=== PATIENT | male | born 1945 | race Caucasian/White ===

== ENCOUNTER → 2017-12-27 | Outpatient (CLI) | payer MEDICARE, BC ==
--- NOTE | 2017-12-31 10:23 | P.ARTDOP ---
Arterial Doppler LOWER EXTREMITY ARTERIAL DOPPLER: DATE OF SERVICE: 12/27/2017 Reason for study: Leg pain, right. Doppler waveforms: Multiphasic bilaterally throughout. Pulse volume recording: Normal configuration. Pressure gradients: None. Ankle-brachial indices: Greater than 1 bilaterally. Toe pressures: 124 on the right, 133 on the left Impression: Normal study.
== END | disposition home or self-care (01) ==
LOC: RADUSWWP 09:57
PROVIDERS: ATTEND Internal Medicine
DX: M79.604 Pain in right leg (principal)
CPT/HCPCS: 93923

== ENCOUNTER → 2019-01-21 | Outpatient (CLI) | payer MEDICARE, BC | END | disposition home or self-care (01) | LOC: LABPAT 12:43 | PROVIDERS: ATTEND Orthopaedic Surgery | DX: Z01.812 Encounter for preprocedural laboratory examination (principal) | CPT/HCPCS: 87070 ==

== ENCOUNTER → 2019-01-30 | Outpatient (CLI) | payer MEDICARE, BC ==
[2019-01-30 16:58] LABS: INR 1.3 (<1.2); Partial Thromboplastin Time 29.8 sec (22.0-30.0); Prothrombin Time 12.9 sec (9.0-12.0)
[2019-01-30 17:01] LABS: Appearance,Urine Clear (Clear); Bilirubin,Urine Negative (Negative); Blood,Urine Small (Negative); Color,Urine Yellow; Glucose,Urine (UA) Negative (Negative); Ketones,Urine Negative (Negative); Leukocyte Esterase,Urine Negative (Negative); Mucus,Urine Rare /hpf; Nitrite,Urine Negative (Negative); PH, Urine 5.5 (5.0-8.0); Protein,Urine 1+ (Negative); RBC,Urine 8 /hpf (0-5); Specific Gravity,Urine 1.012 (1.001-1.035); Urobilinogen,Urine <2.0 mg/dL (<2.0); WBC,Urine <1 /hpf (0-5)
== END | disposition home or self-care (01) ==
LOC: LABPAT 16:30
PROVIDERS: ATTEND Orthopaedic Surgery
DX: Z01.812 Encounter for preprocedural laboratory examination (principal); Z79.01 Long term (current) use of anticoagulants
CPT/HCPCS: 81001; 85610; 85730

== ENCOUNTER 2019-02-10 08:18 | Inpatient (IN) | payer MEDICARE, BC ==
[2019-02-03 15:55] VITALS: BMI 32.5
[~2019-02-10 08:18] MED LIST: ACETAMINOPHEN TAB 500 MG TAB PO ONE; DEXAMETHASONE SOD PHOSPHATE 10 MG/ML 1 ML VIAL IV ONE; LACTATED RINGERS 1,000 ML IV SCH; LIDOCAINE 1% 20 ML VIAL (10MG/ML) FOR IV START INTRADERMA PRN; MELOXICAM 7.5 MG TAB PO ONE; MORPHINE SULFATE 2 MG/ML SYRINGE IV PRN; ONDANSETRON 4 MG/2 ML VIAL IVP ONE; ONDANSETRON 4 MG/2 ML VIAL IVP PRN; ROPIVACAINE 246.25 MG, EPINEPHrine 0.5 MG, KETOROLAC 30 MG, cloNIDine HCL/PF 80 MCG, WA... MISCELLANE ONE; TRANEXAMIC ACID 1,000 MG in SODIUM CHLORIDE 0.9% 100 ML IVPB ONE
[2019-02-10 09:07] LABS: Glucose,Whole Blood 175 mg/dL (75-99)
[2019-02-10] MEDS ORDERED: MIDAZOLAM (PF) 2 MG/2 ML VIAL IVP ONE (09:14)
[2019-02-10] MEDS ORDERED: SODIUM CHLORIDE 0.9% 100 ML BAG ONE (10:40)
[2019-02-10] MEDS ORDERED: fentaNYL (PF) 50 MCG/ML 2 ML AMP ONE (10:40)
[2019-02-10] MEDS ORDERED: MIDAZOLAM 2 MG/2 ML VIAL ONE (10:40)
[2019-02-10] MEDS ORDERED: TRANEXAMIC ACID 1,000 MG/10 ML VIAL ONE (10:40)
[2019-02-10] MEDS ORDERED: PROPOFOL 10 MG/ML 20 ML VIAL IV ONE (10:40)
[2019-02-10] MEDS ORDERED: BISACODYL 10 MG SUPP RECTAL PRN (10:45)
[2019-02-10] MEDS ORDERED: NA PHOS,M-B/NA PHOS,DI-BA 133 ML ENEMA RECTAL PRN (10:45)
[2019-02-10] MEDS ORDERED: HYDROcodone/APAP 5-325MG 1 EACH TAB PO PRN (10:45)
[2019-02-10] MEDS ORDERED: HYDROmorphone 0.5 MG/0.5 ML SYRINGE IVP PRN ×3 (10:45)
[2019-02-10] MEDS ORDERED: ONDANSETRON 4 MG/2 ML VIAL IVP PRN (10:45)
[2019-02-10] MEDS ORDERED: NALOXONE 0.4 MG/ML 1 ML VIAL IV PRN (10:45)
[2019-02-10] MEDS ORDERED: MAGNESIUM HYDROXIDE 2,400 MG/10 ML CUP PO PRN (10:45)
[2019-02-10] MEDS ORDERED: ceFAZolin 3,000 MG in SODIUM CHLORIDE 0.9% IRRIGATIO 3,000 ML IRRIGATION ONE (10:49)
[2019-02-10] MEDS ORDERED: ROPIVACAINE 0.2%-NS ON-Q PUMP 1,090 MG, EMPTY PAIN BALL 1 EACH MISCELLANE PRN (11:05)
--- NOTE | 2019-02-10 12:56 | P.OP ---
Date of Procedure: 02/10/19 Procedure(s) Performed: PREOPERATIVE DIAGNOSIS: Right knee severe osteoarthritis with genu varum POSTOPERATIVE DIAGNOSIS: Right knee severe osteoarthritis with genu varum OPERATION: Right knee cemented total replacement arthroplasty. ANESTHESIA: Spinal ESTIMATED BLOOD LOSS: 50 ml. DIRECTOR OPERATING ROOM: None COMPLICATIONS: None apparent. COMPONENTS IMPLANTED: Journey II BCS total knee system from [employer] INDICATIONS: Mr. Mora is a 73-year-old male with a history of right knee osteoarthritis. The patient's knee is end-stage, and conservative management has failed. He has approximately 20 degree flexion contracture. The operation of knee replacement has been discussed at length in the office, as well as potential risks and complications. These are inclusive of, but not limited to: bleeding, infection, scarring, discomfort, blood vessel and nerve damage, need for further surgery, failure to relieve symptoms, persistence, recurrence, or worsening of problems, loosening, dislocation, wear, blood clot, pulmonary embolism, , gait dysfunction, stiffness, and other risks as discussed in the office. The patient elects to proceed and the consent form has been signed. PROCEDURE: The patient was taken to the operating room and positioned on the operating room table in the supine position. Anesthesia was initiated. Care was taken to make sure that all pressure points were adequately padded. The right operative lower extremity was prepped and draped in the usual aseptic fashion using ChloraPrep. Ioban drape was used for the case and the patient received intravenous antibiotics within one hour of the incision. A pneumotourniquet and leg moore were used for the case. The limb was exsanguinated with an Esmarch bandage and the tourniquet was inflated to 350 mmHg. Time-out was called confirming the patient's identity, side, procedure and administration of antibiotics and tranexamic acid. The incision was then created midline directly over the left knee, carried down through skin and into the subcutaneous tissues and down to fascia. Full thickne ss subcutaneous medial flap was developed. Medial parapatellar arthrotomy was performed and the interior of the knee was inspected. There was end-stage osteoarthritis of the knee with a mild to moderate genu varum type deformity. The fat pad was excised and proximal medial release on the tibia was completed using meticulous dissection and a curved osteotome. The anterior cruciate ligament was taken down. Note was made of significant attrition of the anterior and significant degenerative appearance of the cruciate ligaments. The exposure was excellent. The knee was flexed 90 degrees and the patella was everted. The [employer] pre- made distal cutting block was attached and pinned into position. The planned cut was analyzed visually and found to be satisfactory without the need for any ad justment. The oscillating saw was then used to make the distal femoral cut. An additional 2 mm were taken with a re-cutter block due to the patient's history of flexion contracture. This cut was confirmed to be flat with the flat end of an osteotome. The retractors were placed around the tibia and the tibial surface was addressed. The [employer] pre-made guide was placed onto the exposed tibial surface and pinned into position to glen the rotational alignment. The alignment of the guide was checked for depth of plannned resection, slope, and varus valgus. Guide was confirmed to be in good position and the tibial cut was then created with protection of the posterior neurovascular structures and the collateral ligaments. The tibial cut surface was removed and sized. Femoral sizing was then accomplished using posterior referencing. Care was taken to analyze the posterior condyles for signs of deficiency or severe wear, and adjustments to the guide were made, as appropriate. 3 degree external rotation pins were placed relative to Brantley's line. The cutting jig for the femur was applied to these pins. The planned cuts were further analyzed prior to performing them with the oscillating saw. No femoral notching was produced. Bone fragments were removed and the cut surfaces were finished, as necessary, with a reciprocating saw. Spacer block technique was then used to confirm that the flexion and extension gaps were equal. Soft tissue releases and adjustment of the tibial and/or femoral cuts were made, as necessary, until the gaps were equal. This included release of the posterior cruciate ligament, which was excessively tight in this patient. The femur was then further finished for a posterior cruciate ligament substituting component. Patellar resurfacing was performed using a reamer. The size of the required patellar component was estimated and the patellar surface was then reamed down to a residual thickness which would recreate the solomon thickness with the component. The exact placement of the patellar component was adjusted for position based on preoperative x-rays and intraoperative findings. Prior to placing trial components, anesthetic solution consisting of ropivicaine with epinephrine, ketorolac, and clonidine was injected carefully and methodically in a grid pattern using aspiration technique into the soft tissue around the knee circumferentially, starting with the deeper tissues first and progressing to fascia, and then finally the skin/subcutaneous tissue. Particular care was taken when injecting the posterior capsule. The trial components were inserted. The tibial tray was allowed to self center and the patella was noted to track very well. The position of the tibial component was marked and noted to be nearly exactly aligned with the pre-drilled holes from the [employer] guide. The tibia was then finished for a stemmed tibial component. Cement was mixed on the back table and applied to the final components. Trial components were removed and the cut surfaces of the bone were pulse lavaged thoroughly and dried. Cement was then applied to the tibial surface and pressurized into the surface using finger pressurization technique. The tibial component was then applied and excess cement was removed after it was impacted securely and noted to be flush with the cut surface. In similar fashion, the cement was applied to the cut femoral surface, pressurized in using finger pressurization and the component was impacted into place. Excess cement was removed. The polyethylene spacer was then implanted and locked into position. The patellar component was then applied in similar technique and a patellar clamp was used to hold the patella in place as the cement hardened. Once the cement had fully hardened, the knee was reinspected. Any other cement extrusion was removed and final kinematic testing showed range of motion from 0 to 130 degrees with excellent stability, both medially and laterally and appropriate alignment of the leg. Patellar tracking was excellent. The knee was then thoroughly pulse lavaged with normal saline. The tourniquet was deflated and hemostasis was obtained with electrocautery and IV tranexamic acid, 1 g given at the start of the operation and 1 g at the start of closure. Closure was with #2 Ethibond in the fascia/capsule and supplemented with #2 Quill, 2-0 Vicryl suture was used for the subcutaneous tissues and 3-0 Quill for the skin. Dermabond/Steri-Strips were then applied. A lightly compressive dressing was applied using Webril and an Daniel wrap. [facility] and taken to the recovery room in stable condition. Sponge and needle counts were correct.
[2019-02-10] MEDS ORDERED: LACTATED RINGERS 1,000 ML IV ONE (13:15)
[2019-02-10 13:48] LABS: Glucose,Whole Blood 125 mg/dL (75-99)
--- NOTE | 2019-02-10 13:51 | XR ---
EXAMINATION TYPE: XR knee limited RT DATE OF EXAM: 02/10/2019 COMPARISON: NONE TECHNIQUE: Two views submitted HISTORY: Post op FINDINGS: There is a prosthetic knee in near anatomic alignment. There is soft tissue edema and emphysema. Va scular calcifications noted. Lucency involving the anterior margin patella is nonspecific. Nondisplac ed patellar fracture not excluded. IMPRESSION: 1. Postoperative change. Appears in near-anatomic alignment. See above.
[2019-02-10] MEDS ORDERED: ALBUTEROL NEBULIZED 2.5 MG/3 ML INHALATION PRN (17:12)
[2019-02-10] MEDS: LACTATED RINGERS 1,000 ML IV SCH ×2 (17:19→21:18)
[2019-02-10 17:31] LABS: Glucose,Whole Blood 159 mg/dL (75-99)
[2019-02-10] MEDS: INSULIN ASPART (NovoLOG) 100 UNIT/ML VIAL SQ SCH ×2 (17:38→21:17)
[2019-02-10] MEDS: SYMBICORT 160-4.5 MCG INHALER INHALATION SCH (19:50)
[2019-02-10 20:41] LABS: Glucose,Whole Blood 253 mg/dL (75-99)
[2019-02-10] MEDS: MONTELUKAST 10 MG TAB PO SCH (21:19)
[2019-02-10] MEDS: SENNOSIDES-DOCUSATE SODIUM 1 EACH TAB PO SCH (21:19)
[2019-02-10] MEDS ORDERED: TEMAZEPAM 15 MG CAP PO PRN (22:00)
--- NOTE | 2019-02-10 23:10 | CONS ---
CONSULTATION DATE OF SERVICE: 02/10/2019 REASON FOR CONSULTATION: Advice regarding diabetes and other multiple medical issues requested by Dr. Guadalupe. HISTORY OF PRESENT ILLNESS: This 73-year-old gentleman with a past medical history of asthma, COPD, diabetes, DVT, hearing defect, hypertension, hyperlipidemia, DJD, being followed by Dr. Marquez in the outpatient setting, admitted after right knee cemented total replacement arthroplasty by Dr. Guadalupe. There is no history of fever, rigors or chills. No history of headache, loss of consciousness, chest pain, palpitation, nausea, vomiting and diarrhea. Patient apparently had a tendon replacement and surgery on the left knee several years ago with several postoperative problems according to him. There is no history of fever, rigors, chills at this time. PAST MEDICAL HISTORY: History of asthma, COPD, diabetes, DVT, history of hypertension, hyperlipidemia, DJD, history of orthopedic surgery. History of nicotine dependence. MEDICATIONS: Prior to admission home medications are: 1. Xarelto 20 mg p.o. daily. 2. Aleve 220 mg p.o. b.i.d. p.r.n. 3. Glucotrol 2.5 mg a.c. breakfast. 4. Crestor 10 mg p.o. daily. 5. Multivitamins 1 p.o. daily. 6. Symbicort 160/4.5 two puffs b.i.d. 7. Ventolin HFA 1-2 puffs q.6h p.r.n. 8. Singulair 10 mg q.h.s. 9. Senokot-S 1 tablet p.o. b.i.d. 10.Arden 5/320 mg 1-2 tablets q.4h 6 p.r.n. ALLERGIES: None. FAMILY HISTORY: History of CVA, TIA, myocardial infarction. SOCIAL HISTORY: Previous history of smoking. No history of current smoking or alcohol intake. REVIEW OF SYSTEMS: ENT: No diminished vision. CARDIOVASCULAR: No angina or palpitations. RESPIRATORY: No cough or hemoptysis. GI no nausea or vomiting. no dysuria. NERVOUS SYSTEM: No numbness or weakness. ALLERGY: As mentioned earlier. MUSCULOSKELETAL: As mentioned earlier. HEMATOLOGY: No history of anemia. ENDOCRINE: Diabetes. CONSTITUTIONAL: As mentioned earlier. DERMATOLOGY negative. RHEUMATOLOGY: Negative. PSYCHIATRIC: As mentioned earlier. PHYSICAL EXAMINATION: Alert and oriented x3. Pulse is 66, blood pressure 158/93, respirations 16, temperature 97.7, pulse ox 97% on room air. HEENT is conjunctivae normal. NECK: S1, S2 muffled. RESPIRATIONS: Breath sounds diminished in the bases. No rhonchi. No crackles. ABDOMEN: Soft, nontender. No mass palpable. LEGS: Status post right knee arthroplasty. NERVOUS SYSTEM: Higher functions as mentioned earlier. Moves all 4 limbs. No focal motor or sensory deficits. LYMPHATICS: No lymph nodes palpable in the neck, axilla or groin. LABS: Accu-Cheks 159, 125, 159. Otherwise, the previous chemistries noted. ASSESSMENT: 1. Status post right total knee arthroplasty. 2. History of asthma, chronic obstructive pulmonary disease. 3. Diabetes mellitus type 2. 4. History of deep vein thrombosis. 5. Hypertension. 6. Hyperlipidemia. 7. History of degenerative joint disease. 8. History of pulmonary embolism. 9. History of degenerative joint disease. 10.Remote history of nicotine dependence. 11.FULL CODE. RECOMMENDATIONS AND DISCUSSION: This 73-year-old gentleman presented after surgery at this time I recommend to continue current management and resume the home medication. Monitor blood sugars closely. Otherwise, I would also recommend DVT prophylaxis. The patient is started on Xarelto 20 mg daily. We will follow the patient closely and the patient may be asked to follow up with Dr. Marquez closely after discharge. Thank you Dr. Guadalupe for letting us participate in the care this patient. Please also had medication reconciliation was given thank present complication office was performed. Thank you for this consultation. MMODL / IJN: [id number] /
[2019-02-11] MEDS: HYDROcodone/APAP 5-325MG 1 EACH TAB PO PRN ×4 (01:34→22:18)
[2019-02-11 06:48] LABS: Glucose,Whole Blood 110 mg/dL (75-99)
[2019-02-11 07:09] LABS: Basophils % (A) 0 %; Eosinophils # (A) 0.1 k/uL (0-0.7); Eosinophils % (A) 1 %; HCT 47.8 % (39.0-53.0); HGB 15.5 gm/dL (13.0-17.5); Lymphocytes # (A) 1.2 k/uL (1.0-4.8); Lymphocytes % (A) 9 %; MCHC 32.4 g/dL (31.0-37.0); MCV 95.6 fL (80.0-100.0); Mean Platelet Volume 6.8; Monocytes # (A) 1.1 k/uL (0-1.0); Monocytes % (A) 8 %; Neutrophils % (A) 80 %; Platelet Count 188 k/uL (150-450); RDW 12.9 % (11.5-15.5); WBC 13.7 k/uL (3.8-10.6)
[2019-02-11] MEDS: SYMBICORT 160-4.5 MCG INHALER INHALATION SCH ×2 (07:48→19:32)
--- NOTE | 2019-02-11 08:21 | P.PN ---
Progress Note - Text 02/11/2019 737am 73-year-old male status post total knee replacement by Dr. Guadalupe. Patient has an On-Q pump for postop pain control with the solution running at 7 mL an hour with a VAS of 2. Dressing clean dry and intact. Plan to continue On-Q pump infusion
[2019-02-11] MEDS: INSULIN ASPART (NovoLOG) 100 UNIT/ML VIAL SQ SCH ×4 (08:28→22:11)
[2019-02-11] MEDS: ATORVASTATIN 20 MG TAB PO SCH (08:47)
[2019-02-11] MEDS: MELOXICAM 7.5 MG TAB PO SCH (08:48)
[2019-02-11] MEDS: MULTIVITAMINS, THERA 1 EACH TAB PO SCH (08:49)
[2019-02-11] MEDS: RIVAROXABAN 10 MG TAB PO SCH (08:49)
[2019-02-11] MEDS: LACTATED RINGERS 1,000 ML IV SCH ×2 (10:27→17:24)
--- NOTE | 2019-02-11 11:08 | P.PN ---
Subjective Progress Note Date: 02/11/19 Principal diagnosis: S/P right TKA Patient is seen at bedside this morning. He is postop day #1 from right total knee arthroplasty.. He has pain at the surgical site as expected but denies any new complaints. He denies numbness, tingling or calf pain. Review of systems is negative for fever, chills, chest pain, shortness of breath or other Objective - Vital Signs Vital signs: Vital Signs Temp 98.6 F 02/11/19 07:31 Pulse 75 02/11/19 07:31 Resp 18 02/11/19 04:00 BP 133/70 02/11/19 07:31 Pulse Ox 96 02/11/19 07:31 Intake & Output 02/10/19 02/11/19 02/11/19 18:59 06:59 18:59 Intake Total 1051 Output Total 50 325 Balance 1001 -325 Weight 101.831 kg Intake: IV 1051 Output: Urine 325 Estimated Blood Loss 50 Other: Voiding Method Toilet Urinal - Exam Inspection reveals a benign surgical wound. There is no active bleeding or drainage. Neurovascular status is intact throughout the lower extremity with motor and sensation fully intact. Calf is soft and nontender. 2+ dorsalis pedis pulse and less than 2 second cap refill is present. - Constitutional General appearance: Present: no acute distress - Labs CBC & Chem 7: 02/11/19 06:39 Labs: Abnormal Lab Results - Last 24 Hours (Table) 02/10/19 02/10/19 02/10/19 Range/Units 13:45 17:30 20:38 WBC (3.8-10.6) k/uL Neutrophils # (1.3-7.7) k/uL Monocytes # (0-1.0) k/uL POC Glucose (mg/dL) 125 H 159 H 253 H (75-99) mg/dL 02/11/19 02/11/19 Range/Units 06:39 06:47 WBC 13.7 H (3.8-10.6) k/uL Neutrophils # 11.0 H (1.3-7.7) k/uL Monocytes # 1.1 H (0-1.0) k/uL POC Glucose (mg/dL) 110 H (75-99) mg/dL Assessment and Plan (1) S/P total knee arthroplasty Narrative/Plan: He will continue with routine postop orthopedic protocol including pain management, wound care, PT, DVT prophylaxis and medical management. Expect that he will transfer to home tomorrow Current Visit: Yes Status: Acute Priority: Medium Code(s): Z96.659 - PRESENCE OF UNSPECIFIED ARTIFICIAL KNEE JOINT SNOMED Code(s): 6217120149442 Time with Patient: Less than 30
[2019-02-11 11:49] LABS: Glucose,Whole Blood 70 mg/dL (75-99)
--- NOTE | 2019-02-11 12:58 | P.PN ---
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 Constitutional: Denied any fatigue denied any fever. Cardio vascular: denied any chest pain, palpitations Gastrointestinal denied any nausea vomiting Pulmonary: Denied any shortness of breath cough Neurologic denied any new focal deficits All inpatient medications were reviewed and appropriate changes in these medications as dictated in the interval history and assessment and plan. Objective - Vital Signs Vital signs: Vital Signs Temp 98.6 F 02/11/19 07:31 Pulse 75 02/11/19 07:31 Resp 18 02/11/19 04:00 BP 133/70 02/11/19 07:31 Pulse Ox 96 02/11/19 07:31 Intake & Output 02/10/19 02/11/19 02/11/19 18:59 06:59 18:59 Intake Total 1051 Output Total 50 325 Balance 1001 -325 Weight 101.831 kg Intake: IV 1051 Output: Urine 325 Estimated Blood Loss 50 Other: Voiding Method Toilet Urinal - Exam PHYSICAL EXAMINATION: GENERAL: The patient is alert and oriented x3, not in any acute distress. Well developed, well nourished. HEENT: Pupils are round and equally reacting to light. EOMI. No scleral icterus. No conjunctival pallor. Normocephalic, atraumatic. No pharyngeal erythema. No thyromegaly. CARDIOVASCULAR: S1 and S2 present. No murmurs, rubs, or gallops. PULMONARY: Chest is clear to auscultation, no wheezing or crackles. ABDOMEN: Soft, nontender, nondistended, normoactive bowel sounds. No palpable organomegaly. MUSCULOSKELETAL: No joint swelling or deformity. EXTREMITIES: No cyanosis, clubbing, or pedal edema. Right knee postsurgically packed NEUROLOGICAL: Gross neurological examination did not reveal any focal deficits. SKIN: No rashes. - Labs CBC & Chem 7: 02/11/19 06:39 Labs: Abnormal Lab Results - Last 24 Hours (Table) 02/10/19 02/10/19 02/10/19 Range/Units 13:45 17:30 20:38 WBC (3.8-10.6) k/uL Neutrophils # (1.3-7.7) k/uL Monocytes # (0-1.0) k/uL POC Glucose (mg/dL) 125 H 159 H 253 H (75-99) mg/dL 02/11/19 02/11/19 02/11/19 Range/Units 06:39 06:47 11:48 WBC 13.7 H (3.8-10.6) k/uL Neutrophils # 11.0 H (1.3-7.7) k/uL Monocytes # 1.1 H (0-1.0) k/uL POC Glucose (mg/dL) 110 H 70 L (75-99) mg/dL Assessment and Plan Plan: -Status post right knee arthroplasty and patient is on anticoagulation does have history of DVT in the past - hyperlipidemia -Type 2 diabetes mellitus -COPD without any acute exacerbation Plan is to continue present medication continue to follow on as-needed basis. Patient will need lifelong anticoagulation
[2019-02-11 16:58] LABS: Glucose,Whole Blood 79 mg/dL (75-99)
[2019-02-11 20:55] LABS: Glucose,Whole Blood 108 mg/dL (75-99)
[2019-02-11] MEDS: SENNOSIDES-DOCUSATE SODIUM 1 EACH TAB PO SCH (22:15)
[2019-02-11] MEDS: MONTELUKAST 10 MG TAB PO SCH (22:15)
[2019-02-12] MEDS: LACTATED RINGERS 1,000 ML IV SCH ×2 (03:53→17:48)
[2019-02-12] MEDS: HYDROcodone/APAP 5-325MG 1 EACH TAB PO PRN ×2 (06:12→15:34)
[2019-02-12 07:02] LABS: Glucose,Whole Blood 137 mg/dL (75-99)
[2019-02-12] MEDS: SYMBICORT 160-4.5 MCG INHALER INHALATION SCH (07:14)
[2019-02-12 07:35] VITALS: RESP 16
--- NOTE | 2019-02-12 07:45 | P.DS ---
Providers Date of admission: 02/12/19 01:46 Expected date of discharge: 02/12/19 Attending physician: Kalpesh Guadalupe Consults: 02/10/19 10:45 Consult Physician Routine Consulting Provider: Brandy Eng Consult Reason/Comments: Medical management Do you want consulting provider notified?: Yes Primary care physician: Yisel Marquez - Discharge Diagnosis(es) (1) Osteoarthritis of right knee Current Visit: Yes Status: Acute (2) S/P total knee arthroplasty Current Visit: Yes Status: Acute Priority: Medium (3) Diabetes Current Visit: No Status: Acute (4) Exertional dyspnea Current Visit: No Status: Acute Hospital Course: This is a 73-year-old male who was last seen with complaint of continued right knee pain. The patient has a known history of degenerative arthritis of the right knee and presents to discuss surgical options. After discussion and consideration the patient elects to proceed with total right knee arthroplasty. The patient is seen preoperatively by Dr. Marquez and cleared for surgery. The patient is admitted to [facility] for total right knee arthroplasty. The procedures performed without complication or sequelae. Patient is doing well postoperatively. Vital signs are stable at discharge. Labs are stable at discharge. the patient is ambulating well with walker with minimal assistance. The patient is discharged to home on postop day #2 pending medical clearance. Please see orders and refer to the [facility] rec for accurate list of medications. Plan - Discharge Summary Discharge Rx Participant: Yes New Discharge Prescriptions: New HYDROcodone/APAP 5-325MG [Afton 5-325] 1 - 2 each PO Q4-6H PRN #50 tab PRN Reason: Pain Sennosides-Docusate Sodium [Senokot-S] 1 tab PO BID #60 tablet Continue glipiZIDE [Glucotrol] 2.5 mg PO AC-BRKFST Rosuvastatin [Crestor] 10 mg PO DAILY Rivaroxaban [Xarelto] 20 mg PO DAILY Multivitamins, Thera [Multivitamin (formulary)] 1 tab PO DAILY Naproxen Sodium [Aleve] 220 mg PO BID PRN PRN Reason: Pain Budesonide-Formot 160-4.5 Mcg [Symbicort 160-4.5 Mcg Inhaler] 2 puff INHALATION RT-BID Albuterol Inhaler [Ventolin Hfa Inhaler] 1 - 2 puff INHALATION RT-Q6H PRN PRN Reason: Shortness Of Breath Montelukast Sodium [Singulair] 10 mg PO HS Discharge Medication List Rosuvastatin [Crestor] 10 mg PO DAILY 06/10/14 [History] glipiZIDE [Glucotrol] 2.5 mg PO AC-BRKFST 06/10/14 [History] Multivitamins, Thera [Multivitamin (formulary)] 1 tab PO DAILY 10/27/15 [History] Rivaroxaban [Xarelto] 20 mg PO DAILY 10/27/15 [History] Albuterol Inhaler [Ventolin Hfa Inhaler] 1 - 2 puff INHALATION RT-Q6H PRN 02/03/19 [History] Budesonide-Formot 160-4.5 Mcg [Symbicort 160-4.5 Mcg Inhaler] 2 puff INHALATION RT-BID 02/03/19 [History] Montelukast Sodium [Singulair] 10 mg PO HS 02/03/19 [History] Naproxen Sodium [Aleve] 220 mg PO BID PRN 02/03/19 [History] HYDROcodone/APAP 5-325MG [Afton 5-325] 1 - 2 each PO Q4-6H PRN #50 tab 02/10/19 [Rx] Sennosides-Docusate Sodium [Senokot-S] 1 tab PO BID #60 tablet 02/10/19 [Rx] Follow up Appointment(s)/Referral(s): Tierra Boateng, PAC [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 May shower if no drainage 48h post op. Medical to manage anticoagulation at discharge.
[2019-02-12] MEDS: MELOXICAM 7.5 MG TAB PO SCH (08:22)
[2019-02-12] MEDS: ATORVASTATIN 20 MG TAB PO SCH (08:22)
[2019-02-12] MEDS: INSULIN ASPART (NovoLOG) 100 UNIT/ML VIAL SQ SCH ×2 (08:22→13:13)
[2019-02-12] MEDS: RIVAROXABAN 10 MG TAB PO SCH (08:23)
[2019-02-12] MEDS: MULTIVITAMINS, THERA 1 EACH TAB PO SCH (08:23)
[2019-02-12 11:17] LABS: Glucose,Whole Blood 82 mg/dL (75-99)
--- NOTE | 2019-02-12 12:22 | P.PN ---
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 03/15/2019 No overnight events patient is clinically doing well can be discharged from medical perspective Constitutional: Denied any fatigue denied any fever. Cardio vascular: denied any chest pain, palpitations Gastrointestinal denied any nausea vomiting Pulmonary: Denied any shortness of breath cough Neurologic denied any new focal deficits All inpatient medications were reviewed and appropriate changes in these medications as dictated in the interval history and assessment and plan. Objective - Vital Signs Vital signs: Vital Signs Temp 99.7 F H 02/12/19 07:00 Pulse 94 02/12/19 07:00 Resp 16 02/12/19 07:00 BP 117/67 02/12/19 07:00 Pulse Ox 90 L 02/12/19 07:00 Intake & Output 02/11/19 02/12/19 02/12/19 18:59 06:59 18:59 Intake Total 1000 Output Total 325 Balance 675 Intake: Oral 1000 Output: Urine 325 Other: Voiding Method Urinal Urinal # Voids 3 2 - Exam PHYSICAL EXAMINATION: GENERAL: The patient is alert and oriented x3, not in any acute distress. Well developed, well nourished. HEENT: Pupils are round and equally reacting to light. EOMI. No scleral icterus. No conjunctival pallor. Normocephalic, atraumatic. No pharyngeal erythema. No thyromegaly. CARDIOVASCULAR: S1 and S2 present. No murmurs, rubs, or gallops. PULMONARY: Chest is clear to auscultation, no wheezing or crackles. ABDOMEN: Soft, nontender, nondistended, normoactive bowel sounds. No palpable organomegaly. MUSCULOSKELETAL: No joint swelling or deformity. EXTREMITIES: No cyanosis, clubbing, or pedal edema. Right knee postsurgically packed NEUROLOGICAL: Gross neurological examination did not reveal any focal deficits. SKIN: No rashes. - Labs CBC & Chem 7: 02/11/19 06:39 Labs: Abnormal Lab Results - Last 24 Hours (Table) 02/11/19 02/12/19 Range/Units 20:52 07:00 POC Glucose (mg/dL) 108 H 137 H (75-99) mg/dL Assessment and Plan Plan: -Status post right knee arthroplasty and patient is on anticoagulation does have history of DVT in the past - hyperlipidemia -Type 2 diabetes mellitus -COPD without any acute exacerbation Plan is to continue present medication continue to follow on as-needed basis. Patient will need lifelong anticoagulation
[2019-02-12 14:04] LABS: Hemoglobin A1C 6.2 % (4.0-6.0)
[2019-02-12 14:21] VITALS: BP 145/76; PULSE 85; TEMP 98.6
== END 2019-02-12 16:00 | disposition home health service (06) | DRG 470 ==
LOC: OR 08:18 → 4SSUR 14:43 → OR 02-12 01:45 → 4SSUR 02-12 01:46 → OBSVTOIN 02-12 08:25
PROVIDERS: ADMIT Orthopaedic Surgery; ATTEND Orthopaedic Surgery
PROC: 0SRC0J9 Replacement of Right Knee Joint with Synthetic Substitute, Cemented, Open Approach (ICD-10-PCS; principal; 2019-02-10 09:45)
DX: M17.11 Unilateral primary osteoarthritis, right knee (principal); E11.9 Type 2 diabetes mellitus without complications; J44.9 Chronic obstructive pulmonary disease, unspecified; I10 Essential (primary) hypertension; H91.90 Unspecified hearing loss, unspecified ear; M21.169 Varus deformity, not elsewhere classified, unspecified knee; E78.5 Hyperlipidemia, unspecified; E66.9 Obesity, unspecified; Z96.651 Presence of right artificial knee joint; Z87.891 Personal history of nicotine dependence; Z86.718 Personal history of other venous thrombosis and embolism; Z86.711 Personal history of pulmonary embolism; Z82.49 Family history of ischemic heart disease and other diseases of the circulatory system; Z68.33 Body mass index [BMI] 33.0-33.9, adult
CPT/HCPCS: 83036; 85025; 85610; 85730; 88300; 94640

== ENCOUNTER 2019-02-17 20:03 | Emergency (ER) | payer MEDICARE, BC ==
--- NOTE | 2019-02-17 20:44 | ED ---
Lower Extremity Injury HPI - General Chief Complaint: Extremity Injury, Lower Stated Complaint: Post Op Knee Swelling Time Seen by Provider: 02/17/19 20:33 Source: patient, RN notes reviewed, old records reviewed Mode of arrival: ambulatory Limitations: no limitations - History of Present Illness Initial Comments: This is a 73-year-old male the ER for evaluation. Patient resents today for evaluation regarding significant right lower extremity swelling secondary to postop changes. Patient just had right knee replacement, has known chronic DVT of right lower extremity. Patient on Xarelto. Patient denying chest pain or shortness of breath. Patient isn't complaining of increased swelling and erythema of the right lower extremity, no current fevers. Patient was sent ER today for visiting health for evaluation of possible infection versus recurrent DVT worsening DVT MD Complaint: other (Right knee right lower extremity swelling and pain) Injury: Leg: Right, Knee: Right Type of Injury: other (Postsurgical) Place: home Severity: moderate Severity scale (1-10): 6 Improves With: nothing Worsens With: nothing Context: other (Postsurgical) Associated Symptoms: able to partially bear weight, ambulatory - Related Data Home Medications Medication Instructions Recorded Confirmed Rosuvastatin [Crestor] 10 mg PO DAILY 06/10/14 02/17/19 glipiZIDE [Glucotrol] 2.5 mg PO AC-BRKFST 06/10/14 02/17/19 Multivitamins, Thera [Multivitamin 1 tab PO DAILY 10/27/15 02/17/19 (formulary)] Rivaroxaban [Xarelto] 20 mg PO DAILY 10/27/15 02/17/19 Albuterol Inhaler [Ventolin Hfa 1 - 2 puff INHALATION RT-Q6H PRN 02/03/19 02/17/19 Inhaler] Budesonide-Formot 160-4.5 Mcg 2 puff INHALATION RT-BID 02/03/19 02/17/19 [Symbicort 160-4.5 Mcg Inhaler] Montelukast Sodium [Singulair] 10 mg PO HS 02/03/19 02/17/19 Naproxen Sodium [Aleve] 220 mg PO BID PRN 02/03/19 02/17/19 Allergies Allergy/AdvReac Type Severity Reaction Status Date / Time No Known Allergies Allergy Verified 02/17/19 22:03 Review of Systems ROS Statement: Those systems with pertinent positive or pertinent negative responses have been documented in the HPI. ROS Other: All systems not noted in ROS Statement are negative. Past Medical History Past Medical History: Asthma, COPD, Diabetes Mellitus, Deep Vein Thrombosis (DVT), Hearing Disorder / Deafness, Hyperlipidemia, Hypertension, Osteoarthritis (OA), Pulmonary Embolus (PE) Additional Past Medical History / Comment(s): HX OF DVT X3 RIGHT LEG, AND PE (2015); ARTHRITIS BACK & NECK. BRUISES EASILY. History of Any Multi-Drug Resistant Organisms: None Reported Past Surgical History: Joint Replacement, Orthopedic Surgery Additional Past Surgical History / Comment(s): "GROWTHS REMOVED FROM HIS LUNGS, STATES THEY HAD TO CUT STERNUM (1988); LEFT KNEE LIGAMENT SURGERY; SAILAJA CAROTID ENDARTRECTOMY. right knee replaced, Past Anesthesia/Blood Transfusion Reactions: No Reported Reaction Additional Past Anesthesia/Blood Transfusion Reaction / Comment(s): HX OF BLOOD TRANSFUSION Past Psychological History: No Psychological Hx Reported Smoking Status: Former smoker Past Alcohol Use History: None Reported Past Drug Use History: None Reported - Past Family History Father Family Medical History: CVA/TIA, Myocardial Infarction ([place]) Additional Family Medical History / Comment(s): AT AGE 68- [place] Mother Family Medical History: No Reported History Additional Family Medical History / Comment(s): AT AGE 85 OLD AGE General Exam - General Exam Comments Initial Comments: Right lower extremity edema, swelling, erythema. Pulses 2+ dorsalis pedis posterior tibialis. Positive range of motion Limitations: no limitations General appearance: alert, in no apparent distress Head exam: Present: atraumatic, normocephalic, normal inspection Eye exam: Present: normal appearance, PERRL, EOMI. Absent: scleral icterus, conjunctival injection, periorbital swelling ENT exam: Present: normal exam, mucous membranes moist Neck exam: Present: normal inspection. Absent: tenderness, meningismus, lymphadenopathy Respiratory exam: Present: normal lung sounds bilaterally. Absent: respiratory distress, wheezes, rales, rhonchi, stridor Cardiovascular Exam: Present: regular rate, normal rhythm, normal heart sounds. Absent: systolic murmur, diastolic murmur, rubs, gallop, clicks GI/Abdominal exam: Present: soft, normal bowel sounds. Absent: distended, tenderness, guarding, rebound, rigid Extremities exam: Present: normal inspection, full ROM, normal capillary refill. Absent: tenderness, pedal edema, joint swelling, calf tenderness Back exam: Present: normal inspection Neurological exam: Present: alert, oriented X3, CN II-XII intact Psychiatric exam: Present: normal affect, normal mood Skin exam: Present: warm, dry, intact, normal color. Absent: rash Course Vital Signs 02/17/19 02/17/19 02/18/19 20:21 22:41 00:23 Temperature 99.0 F 98.7 F Pulse Rate 108 H 74 85 Respiratory 17 16 18 Rate Blood Pressure 140/80 141/87 O2 Sat by Pulse 97 94 L 96 Oximetry - Reevaluation(s) Reevaluation #1: Medical records reviewed pain is controlled Spoke with orthopedics Dr. Ruelas, recommends reevaluation tomorrow morning in the office Medical Decision Making - Medical Decision Making 73 male the ER for evaluation of right lower extremity pain and swelling. Patient does have chronic DVT right lower extremity on Xarelto, x-rays nonsignificant. No fevers. Patient does have range of motion of right lower extremity right knee. Spoke with orthopedics will see patient in office tomorrow recommending treatment at this time - Lab Data Result diagrams: 02/17/19 21:03 02/17/19 21:03 Lab Results 02/17/19 02/17/19 Range/Units 21:03 21:03 WBC 9.8 (3.8-10.6) k/uL RBC 4.52 (4.30-5.90) m/uL Hgb 14.2 (13.0-17.5) gm/dL Hct 43.1 (39.0-53.0) % MCV 95.5 (80.0-100.0) fL MCH 31.5 (25.0-35.0) pg MCHC 33.0 (31.0-37.0) g/dL RDW 14.8 (11.5-15.5) % Plt Count 325 (150-450) k/uL Neutrophils % 74 % Lymphocytes % 11 % Monocytes % 7 % Eosinophils % 5 % Basophils % 1 % Neutrophils # 7.3 (1.3-7.7) k/uL Lymphocytes # 1.1 (1.0-4.8) k/uL Monocytes # 0.7 (0-1.0) k/uL Eosinophils # 0.5 (0-0.7) k/uL Basophils # 0.1 (0-0.2) k/uL ESR 22 H (0-15) mm/hr Sodium 140 (137-145) mmol/L Potassium 4.5 (3.5-5.1) mmol/L Chloride 105 (98-107) mmol/L Carbon Dioxide 27 (22-30) mmol/L Anion Gap 8 mmol/L BUN 25 H (9-20) mg/dL Creatinine 1.26 H (0.66-1.25) mg/dL Est GFR (CKD-EPI)AfAm 64 (>60 ml/min/1.73 sqM) Est GFR (CKD-EPI)NonAf 55 (>60 ml/min/1.73 sqM) Glucose 204 H (74-99) mg/dL Calcium 8.7 (8.4-10.2) mg/dL Total Bilirubin 1.2 (0.2-1.3) mg/dL AST 57 (17-59) U/L ALT 48 (21-72) U/L Alkaline Phosphatase 61 (38-126) U/L C-Reactive Protein 34.8 H (<10.0) mg/L Total Protein 6.6 (6.3-8.2) g/dL Albumin 3.5 (3.5-5.0) g/dL - Radiology Data Radiology results: report reviewed (Ultrasound right lower Shorty positive for DVT, x-ray right lower extremity and postsurgical changes), image reviewed Disposition Clinical Impression: Swelling of right lower extremity, S/P total knee arthroplasty Disposition: HOME SELF-CARE Condition: Good Instructions (If sedation given, give patient instructions): Leg Edema (ED) Is patient prescribed a controlled substance at d/c from ED?: No Referrals: Yisel Marquez MD [Primary Care Provider] - 1-2 days
[2019-02-17] MEDS ORDERED: SODIUM CHLORIDE 0.9% 1,000 ML IV STA (20:48)
[2019-02-17] MEDS ORDERED: MORPHINE SULFATE 4 MG/ML SYRINGE IVP STA (21:10)
[2019-02-17] MEDS ORDERED: MORPHINE SULFATE 4 MG/ML SYRINGE IVP PRN (21:10)
[2019-02-17 21:15] LABS: Basophils # (A) 0.1 k/uL (0-0.2); Basophils % (A) 1 %; Eosinophils # (A) 0.5 k/uL (0-0.7); Eosinophils % (A) 5 %; HCT 43.1 % (39.0-53.0); HGB 14.2 gm/dL (13.0-17.5); Lymphocytes # (A) 1.1 k/uL (1.0-4.8); Lymphocytes % (A) 11 %; MCH 31.5 pg (25.0-35.0); MCV 95.5 fL (80.0-100.0); Mean Platelet Volume 7.2; Monocytes # (A) 0.7 k/uL (0-1.0); Monocytes % (A) 7 %; Neutrophils # (A) 7.3 k/uL (1.3-7.7); Neutrophils % (A) 74 %; Platelet Count 325 k/uL (150-450); RBC 4.52 m/uL (4.30-5.90); RDW 14.8 % (11.5-15.5); WBC 9.8 k/uL (3.8-10.6)
[2019-02-17 21:30] LABS: Albumin 3.5 g/dL (3.5-5.0); C Reactive Protein 34.8 mg/L (<10.0); Calcium 8.7 mg/dL (8.4-10.2); Potassium 4.5 mmol/L (3.5-5.1); Total Bilirubin 1.2 mg/dL (0.2-1.3); Total Protein 6.6 g/dL (6.3-8.2)
--- NOTE | 2019-02-17 21:56 | US ---
EXAMINATION TYPE: US venous doppler duplex LE RT DATE OF EXAM: 02/17/2019 9:50 PM COMPARISON: US 2015 CLINICAL HISTORY: Pain. Rt leg pain and redness x 3 days. Knee surgery on 02/10/2019. Hx DVT, PE. SIDE PERFORMED: Right TECHNIQUE: The lower extremity deep venous system is examined utilizing real time linear array sonog sylvia with graded compression, doppler sonography and color-flow sonography. VESSELS IMAGED: External Iliac Vein (EIV) Common Femoral Vein Deep Femoral Vein Greater Saphenous Vein * Femoral Vein Popliteal Vein Proximal Calf Veins (* superficial vessels) Right Leg: There appears to be non-occlusive thrombus in the mid/distal popliteal vein. This area co mpresses incompletely and shows color defect. Pt cannot tolerate compression of distal femoral vein. Color imaging of distal femoral vein performed. IMPRESSION: There is evidence of chronic deep venous thrombosis in the popliteal vein. No evidence o f acute deep venous thrombosis.
[2019-02-17 21:58] LABS: Erythrocyte Sedimentation Rate 22 mm/hr (0-15)
--- NOTE | 2019-02-17 23:17 | XR ---
EXAM: XR Right Knee, 3 views CLINICAL HISTORY: ITS.REASON XR Reason: pain TECHNIQUE: Three views of the right knee. COMPARISON: No relevant prior studies available. FINDINGS: Bones/joints: Status post arthroplasty without signs of hardware complication. No acute fracture. No dislocation. Soft tissues: Unremarkable. IMPRESSION: Status post arthroplasty without signs of hardware complication.
[2019-02-18 00:44] VITALS: BP 141/87; PULSE 85; RESP 18; TEMP 98.7
== END 2019-02-18 00:23 | disposition home or self-care (01) ==
LOC: EC 20:03
DX: M79.89 Other specified soft tissue disorders (principal); Z96.651 Presence of right artificial knee joint; J44.9 Chronic obstructive pulmonary disease, unspecified; E11.9 Type 2 diabetes mellitus without complications; E78.5 Hyperlipidemia, unspecified; I10 Essential (primary) hypertension; Z79.01 Long term (current) use of anticoagulants; Z79.84 Long term (current) use of oral hypoglycemic drugs; Z79.51 Long term (current) use of inhaled steroids; Z79.899 Other long term (current) drug therapy; Z87.891 Personal history of nicotine dependence; Z86.711 Personal history of pulmonary embolism; Z86.718 Personal history of other venous thrombosis and embolism
CPT/HCPCS: 36415; 80053; 85652; 85025; 86140; 87040; 73562; 93971; 99284; 96374; 96361 ×2; J2270

== ENCOUNTER → 2020-01-22 | Outpatient (CLI) | payer MEDICARE, BC ==
--- NOTE | 2020-01-22 15:43 | US ---
EXAMINATION TYPE: US venous doppler duplex LE RT DATE OF EXAM: 01/22/2020 3:08 PM COMPARISON: 02/17/2019 CLINICAL HISTORY: I80.9 Phlabitis anf thrombophlabitis. Pain hx of blood clot on blood thinners SIDE PERFORMED: Right TECHNIQUE: The lower extremity deep venous system is examined utilizing real time linear array sonog sylvia with graded compression, doppler sonography and color-flow sonography. VESSELS IMAGED: External Iliac Vein (EIV) Common Femoral Vein Deep Femoral Vein Greater Saphenous Vein * Femoral Vein Popliteal Vein Small Saphenous Vein * Proximal Calf Veins (* superficial vessels) Popliteal Vein not complete compression due to chronic DVT good blood flow visualized. IMPRESSION: 1. There is incomplete compression of the right popliteal vein compatible with chronic DVT. There is color flow within the popliteal vein.
== END | disposition home or self-care (01) ==
LOC: RADUSWWP 14:13
PROVIDERS: ATTEND Orthopaedic Surgery
DX: M25.561 Pain in right knee (principal); R93.89 Abnormal findings on diagnostic imaging of other specified body structures; E11.9 Type 2 diabetes mellitus without complications; I10 Essential (primary) hypertension; E78.5 Hyperlipidemia, unspecified; Z96.651 Presence of right artificial knee joint; I80.9 Phlebitis and thrombophlebitis of unspecified site

== ENCOUNTER → 2022-07-27 | Outpatient (CLI) | payer MEDICARE, BC ==
--- NOTE | 2022-07-27 11:05 | XR ---
EXAMINATION TYPE: XR Hip Complete RT DATE OF EXAM: 07/27/2022 CLINICAL HISTORY: Chronic right hip pain x6 weeks with limited range of motion after fall TECHNIQUE: 2 views of the right hip are obtained. COMPARISON: Left femur 06/30/2010 FINDINGS: There are severe degenerative changes of the right hip with sclerosis, subchondral cystic changes, marginal spurring, and near complete loss of the superior joint space. There is no acute fra cture/dislocation evident in the right hip. Degenerative changes of the lower lumbosacral spine are p artially visualized. IMPRESSION: 1. No acute fracture or dislocation of the right hip. Osteopenia does limit sensitivity, so if there is further concern for acute fracture, MRI is suggested. 2. Severe right hip degenerative changes with near complete loss of superior joint space.
== END | disposition home or self-care (01) ==
LOC: RADXRYALE 08:49
PROVIDERS: ATTEND Internal Medicine
DX: M16.11 Unilateral primary osteoarthritis, right hip (principal); G89.29 Other chronic pain
CPT/HCPCS: 73502

== ENCOUNTER 2022-09-28 15:19 | Observation (INO) | payer OTHER, MEDICARE ==
[2022-09-28] MEDS ORDERED: DIPH,PERTUS(ACELL)TETVAC-LF 0.5 ML VIAL IM ONE (15:20)
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
--- NOTE | 2022-09-28 15:49 | XR ---
EXAMINATION TYPE: XR chest 1V portable DATE OF EXAM: 09/28/2022 COMPARISON: 06/10/2014 HISTORY: Pain TECHNIQUE: Single frontal view of the chest is obtained. FINDINGS: There is no focal air space opacity, pleural effusion, or pneumothorax seen. The cardiac silhouette size is within normal limits. The osseous structures are intact. Postsurgical changes ar e seen. IMPRESSION: No acute process.
--- NOTE | 2022-09-28 15:54 | XR ---
EXAMINATION TYPE: XR tibia fibula LT DATE OF EXAM: 09/28/2022 COMPARISON: 06/08/2016 x-ray of the knee HISTORY: Pain TECHNIQUE: Two views are submitted. FINDINGS: The osseous structures are intact. The joint spaces are preserved. Calcaneal spur noted. There are ossified densities posterior to the calcaneus which are corticated likely chronic. Correlate for soft tissue injury. Subcutaneous soft tissue emphysema noted. Sclerotic density overlying the distal diap hysis of the right femur appears within the subcutaneous soft tissues and stable relative to 6. Hypertrophic arthropathy of the patellofemoral joint. IMPRESSION: 1. No acute osseous abnormality. Soft tissue edema with probable laceration with subcutaneous emphyse ma.
--- NOTE | 2022-09-28 15:55 | XR ---
EXAMINATION TYPE: XR pelvis AP view DATE OF EXAM: 09/28/2022 COMPARISON: X-ray 07/27/2022 HISTORY: Pain The osseous structures are intact and the joint spaces are preserved. No acute fracture is seen. Vi sualized bowel gas pattern is nonspecific. Complete loss of joint space in the right hip. Vascular ca lcifications noted and there are severe arthropathy of the left hip. Hypertrophic and degenerative ch manuel of the spine. IMPRESSION: 1. Bilateral severe hip joint arthropathy with complete loss of joint space on the right similar to t he prior x-ray 07/27/2012.
[2022-09-28 15:58] LABS: Basophils % (A) 0 %; Eosinophils # (A) 0.3 k/uL (0-0.7); Eosinophils % (A) 4 %; HGB 15.8 gm/dL (13.0-17.5); Lymphocytes # (A) 0.9 k/uL (1.0-4.8); Lymphocytes % (A) 10 %; MCH 31.9 pg (25.0-35.0); MCHC 33.7 g/dL (31.0-37.0); MCV 94.8 fL (80.0-100.0); Mean Platelet Volume 7.5; Monocytes # (A) 0.5 k/uL (0-1.0); Monocytes % (A) 5 %; Neutrophils # (A) 7.3 k/uL (1.3-7.7); Neutrophils % (A) 80 %; Platelet Count 177 k/uL (150-450); RBC 4.96 m/uL (4.30-5.90); RDW 12.5 % (11.5-15.5); WBC 9.1 k/uL (3.8-10.6)
[2022-09-28 16:12] LABS: ALT 29 U/L (4-49); AST 34 U/L (17-59); African American GFR (CKD) 62 (>60 ml/min/1.73 sqM); Albumin 3.4 g/dL (3.5-5.0); Alcohol <10 mg/dL; Alkaline Phosphatase 77 U/L (38-126); Anion Gap 4 mmol/L; Blood Urea Nitrogen 28 mg/dL (9-20); Calcium 8.6 mg/dL (8.4-10.2); Carbon Dioxide 29 mmol/L (22-30); Chloride 105 mmol/L (98-107); Glucose 140 mg/dL (74-99); INR 1.1 (<1.2); Non-African American GFR(CKD) 53 (>60 ml/min/1.73 sqM); Potassium 4.3 mmol/L (3.5-5.1); Prothrombin Time 11.4 sec (9.0-12.0); Sodium 138 mmol/L (137-145); Total Bilirubin 0.6 mg/dL (0.2-1.3); Total Protein 6.2 g/dL (6.3-8.2)
[2022-09-28 16:34] LABS: Amphetamine Screen,Urine Not Detected (NotDetected); Barbiturate Screen,Urine Not Detected (NotDetected); Benzodiazepines Screen,Urine Not Detected (NotDetected); Cocaine Screen,Urine Not Detected (NotDetected); Methadone Screen, Urine Not Detected (NotDetected); Opiate Screen,Urine Not Detected (NotDetected); Oxycodone Screen, Urine Not Detected (NotDetected); Phencyclidine Screen,Urine Not Detected (NotDetected); Tricyclic Antidepressant,Urine Not Detected (NotDetected); Urn Cannabinoid Scrn Not Detected (NotDetected)
[2022-09-28] MEDS ORDERED: SODIUM CHLORIDE 0.9% 1,000 ML IV ONE (16:49)
[2022-09-28] MEDS ORDERED: METOCLOPRAMIDE 5 MG/ML 2 ML VIAL ONE (17:00)
[2022-09-28] MEDS ORDERED: ONDANSETRON 4 MG/2 ML VIAL ONE (17:00)
[2022-09-28] MEDS ORDERED: DEXAMETHASONE SOD PHOSPHATE 4 MG/ML 1 ML VIAL IV ONE (17:03)
[2022-09-28] MEDS ORDERED: ONDANSETRON 4 MG/2 ML VIAL IVP ONE ×2 (17:03→17:07)
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
[2022-09-28] MEDS ORDERED: METOCLOPRAMIDE 5 MG/ML 2 ML VIAL IVP ONE (17:07)
[2022-09-28] MEDS ORDERED: DEXAMETHASONE SOD PHOSPHATE 4 MG/ML 1 ML VIAL IVP ONE (17:07)
[2022-09-28] MEDS ORDERED: LACTATED RINGERS 1,000 ML IV ONE (17:08)
[2022-09-28] MEDS ORDERED: CITRIC ACID-SODIUM CITRATE 15 ML CUP PO ONE (17:15)
[2022-09-28] MEDS ORDERED: LIDOCAINE 2% INJ 20 MG/ML (2 ML VIAL) ONE (17:19)
[2022-09-28] MEDS ORDERED: PHENYLEPHRINE-0.9% NACL SYG 1,000 MCG/10 ML SYRINGE ONE (17:19)
[2022-09-28] MEDS ORDERED: SODIUM CHLORIDE 0.9% 100 ML BAG ONE (17:19)
[2022-09-28] MEDS ORDERED: SUCCINYLCHOLINE CHLORIDE 200 MG/10 ML VIAL IV ONE (17:19)
[2022-09-28] MEDS ORDERED: MIDAZOLAM 2 MG/2 ML VIAL ONE (17:19)
[2022-09-28] MEDS ORDERED: ePHEDrine 50 MG/ML 1 ML VIAL ONE (17:19)
[2022-09-28] MEDS ORDERED: fentaNYL (PF) 50 MCG/ML 2 ML AMP ONE (17:19)
[2022-09-28] MEDS ORDERED: PROPOFOL 10 MG/ML 20 ML VIAL IV ONE (17:19)
[2022-09-28] MEDS ORDERED: ceFAZolin 1,000 MG VIAL ONE (17:19)
[2022-09-28] MEDS ORDERED: HYDROcodone/APAP 7.5-325MG 1 EACH TAB PO PRN ×2 (17:23)
[2022-09-28] MEDS ORDERED: SODIUM CHLORIDE 0.9% 100 ML with ceFAZolin 2,000 MG IV ONE ×2 (17:24)
[2022-09-28 19:00] LABS: Glucose,Whole Blood 106 mg/dL (70-110)
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
[2022-09-29] MEDS ORDERED: HYDROmorphone 0.5 MG/0.5 ML SYRINGE IVP PRN (07:00)
[2022-09-29] MEDS ORDERED: METOCLOPRAMIDE 5 MG/ML 2 ML VIAL IVP PRN (07:00)
[2022-09-29 07:44] VITALS: BP 120/60; PULSE 81; RESP 16; TEMP 97
--- NOTE | 2022-09-29 08:55 | P.PN ---
Subjective Progress Note Date: 09/29/22 Principal diagnosis: 1.) Left leg crush injury 2.) Left leg complex laceration Patient seen and examined this morning. Patient is sitting up in chair with a reclined with bilateral lower extremities elevated. Surgical dressing to left lower extremity is clean dry and intact, no shadowing. Patient is able to wiggle toes, denies numbness or tingling to left lower extremity. Patient states he's been able toward with walker to restroom and tolerating activity well. Patient states that his pain is well-controlled on current regimen. Patient states he does have a walker at home. He is looking forward to being discharged. Patient has been afebrile, denies nausea/vomiting, or chest pain. Objective - Vital Signs Vital signs: Vital Signs Temp 97.0 F L 09/29/22 07:43 Pulse 81 09/29/22 07:43 Resp 16 09/29/22 07:43 BP 120/60 09/29/22 07:43 Pulse Ox 95 09/29/22 01:47 FiO2 Intake & Output 09/28/22 09/29/22 09/29/22 18:59 06:59 18:59 Intake Total 900 120 Output Total 30 750 Balance 870 -630 Weight 91.626 kg 91.626 kg Intake: IV 900 Oral 120 Output: Urine 750 Estimated Blood Loss 30 Other: Voiding Method Urinal - Exam Patient is alert and oriented 3 appears well-nourished well-hydrated is in no acute distress. They do not appear septic. Inspection: Surgical dressing to LLE is CDI, no shadowing noted. Lower extremities with 5/5 strength in all major muscle groups Upper extremities show 5/5 strength in all major muscle groups. 2/4DTR all UE and LE b/l No tensioning signs. Cranial nerves II through XII are grossly intact. There is FROM that is painless of the b/l UE and LE in all major joints without pain. They are intact to light touch sensation in L2 to S1 nerve distribution. Patient has palpable dorsalis pedis was posterior tibial pulses. Compartments are soft and compressible. - Labs CBC & Chem 7: 09/28/22 15:38 09/28/22 15:38 Labs: Abnormal Lab Results - Last 24 Hours (Table) 09/28/22 09/28/22 Range/Units 15:38 15:38 Lymphocytes # 0.9 L (1.0-4.8) k/uL BUN 28 H (9-20) mg/dL Creatinine 1.27 H (0.66-1.25) mg/dL Glucose 140 H (74-99) mg/dL Total Protein 6.2 L (6.3-8.2) g/dL Albumin 3.4 L (3.5-5.0) g/dL Assessment and Plan Assessment: s/p Left leg complex laceration closure 30 cm with Left leg wound irrigation and sharp excisional debridement of non viable subcutaneous fat/tissue. 1.) Left leg crush injury 2.) Left leg complex laceration Plan: -Appreciate client consultant and team management. -Activity: Ambulate QID, OOB all meals, up and about, limit lifting bending twisting to less than 5 lbs. Use walker or cane if needed for stability. -Daily PT/OT, increase ambulation strength and balance. -Pain control: Adequate at this time -Meds: reviewed -GI ppx: senna, Miralax -Hygiene: Shower today. Maintain dressing clean and dry. -Encourage IS 10x/hr -Dispo: Anticipate discharge home today, patient declines need for homecare. *I reviewed and discussed this case with my attending Dr. Cortez, whom has reviewed this chart and films and is in agreement with assessment and plan of care as outlined above. I have personally seen and examined the patient, performed the documentation and the assessment and plan as written. Number of minutes spent on the visit: 10m
--- NOTE | 2022-09-29 09:13 | P.DS ---
Providers Date of admission: 09/28/22 16:49 Expected date of discharge: 09/29/22 Attending physician: Vinnie Cortez DO Primary care physician: Yisel Marquez [facility] Course: Hospital Course: The patient was evaluated preoperatively and found to have the diagnosis of left leg crush injury with laceration. They underwent appropriate preoperative care and were willing to undergo the intended procedure. They underwent a successful Left leg complex laceration closure 30 cm 2.) Left leg wound irrigation and sharp excisional debridement of non viable subcutaneous fat/tissue, were recovered appropriately and sent to the floor. While on the floor they worked with physical therapy, occupational therapy and nursing to enhance their recovery experience. Their pain was well controlled through their stay and they were started on appropriate medications, DVT ppx modalities, activity and dietary needs. Daily labs were monitored closely, and transfusions were only used when necessary. Medicine as well as other consulting services have made their input and have helped with our team approach and multidisciplinary care. PT milestones have been met and passed and they have made the recommendation of home for this patient and treating providers agree with this care path. The patient will be discharged home with appropriate medications, instructions and follow-up information and in stable condition. Patient Condition at Discharge: Good Plan - Discharge Summary Discharge Rx Participant: No New Discharge Prescriptions: New Cephalexin [Keflex] 500 mg PO QID 7 Days #28 cap HYDROcodone/APAP 5-325MG [[place] 5-325] 1 tab PO Q6HR PRN #18 tab PRN Reason: Pain No Action Rivaroxaban [Xarelto] 20 mg PO DAILY Budesonide-Formot 160-4.5 Mcg [Symbicort 160-4.5 Mcg Inhaler] 2 puff INHALATION RT-BID Albuterol Sulfate [Albuterol Sulfate Hfa] 2 puff PO RT-Q6H PRN PRN Reason: Shortness Of Breath Rosuvastatin Calcium 5 mg PO DAILY lisinopriL [Zestril] 5 mg PO DAILY Dapagliflozin Propanediol [Farxiga] 5 mg PO DAILY Discharge Medication List Rivaroxaban [Xarelto] 20 mg PO DAILY 10/27/15 [History] Budesonide-Formot 160-4.5 Mcg [Symbicort 160-4.5 Mcg Inhaler] 2 puff INHALATION RT-BID 02/03/19 [History] Albuterol Sulfate [Albuterol Sulfate Hfa] 2 puff PO RT-Q6H PRN 09/28/22 [History] Dapagliflozin Propanediol [Farxiga] 5 mg PO DAILY 09/28/22 [History] Rosuvastatin Calcium 5 mg PO DAILY 09/28/22 [History] lisinopriL [Zestril] 5 mg PO DAILY 09/28/22 [History] Cephalexin [Keflex] 500 mg PO QID 7 Days #28 cap 09/29/22 [Rx] HYDROcodone/APAP 5-325MG [[place] 5-325] 1 tab PO Q6HR PRN #18 tab 09/29/22 [Rx] Follow up Appointment(s)/Referral(s): Vinnie Cortez DO [Doctor of Osteopathic Medicine] - 10/02/22 Yisel Marquez MD [Primary Care Provider] - 1-2 days Activity/Diet/Wound Care/Special Instructions: Orthopedic Discharge Instructions: 1. Maintain current dressing clean dry and intact. Do not remove 2. Weight-bear as tolerated with walker / crutch ambulation until follow-up. 3. Ice and elevate when necessary. Do not exceed 20 minutes per hour with ice pack. 6. Pain meds and anticoagulants per prescription. 7. Follow-up in office on Sunday10/02/22 8. Contact [facility] with any questions. Discharge Disposition: HOME SELF-CARE
== END 2022-09-29 15:18 | disposition home or self-care (01) ==
LOC: EC 15:19 → 4SSUR 16:49 → EC 16:51 → 4SSUR 18:47
PROVIDERS: ADMIT Orthopaedic Surgery Hand Surgery; ATTEND Orthopaedic Surgery Hand Surgery
DX: S87.82XA Crushing injury of left lower leg, initial encounter (principal); S81.812A Laceration without foreign body, left lower leg, initial encounter; J44.9 Chronic obstructive pulmonary disease, unspecified; I10 Essential (primary) hypertension; E11.9 Type 2 diabetes mellitus without complications; M47.9 Spondylosis, unspecified; E78.5 Hyperlipidemia, unspecified; I45.10 Unspecified right bundle-branch block; H91.90 Unspecified hearing loss, unspecified ear; M19.90 Unspecified osteoarthritis, unspecified site; F17.200 Nicotine dependence, unspecified, uncomplicated; Z79.01 Long term (current) use of anticoagulants; Z79.84 Long term (current) use of oral hypoglycemic drugs; Z79.899 Other long term (current) drug therapy; Z79.51 Long term (current) use of inhaled steroids; V48.2XXA Person on outside of car injured in noncollision transport accident in nontraffic accident, initial encounter; Z86.718 Personal history of other venous thrombosis and embolism; Z86.711 Personal history of pulmonary embolism; Z96.651 Presence of right artificial knee joint; Z98.890 Other specified postprocedural states; Z82.3 Family history of stroke; Z82.49 Family history of ischemic heart disease and other diseases of the circulatory system
CPT/HCPCS: 90471; 99285; 36415; 93005; 97162; 86900; 86901; 80053; 84484; 85025; 85610; 85730; 86850; 80306; 80320; 72170; 73590; 71045; 90715; 13121; 13122 ×5; G0378 ×2; J2250; J0330; J1100; J2765; J0690 ×3; J2405; J3010; J2370; J2704; J2001

== ENCOUNTER → 2023-12-25 | Outpatient (CLI) | payer MEDICARE, BC ==
--- NOTE | 2023-12-25 16:13 | US ---
EXAMINATION TYPE: US arterial LE single level DATE OF EXAM: 12/25/2023 2:33 PM CLINICAL INDICATION: Male, 78 years old with history of L97.912 NON PRESSURE CHR ULCER; Discoloration purple/redness right lower leg. Non-pressure chronic ulcer right lower leg History of: Smoker: no Hypertension: no Diabetic: no Hyperlipidemia: no TIA/CVA: no Previous Vascular Surgery: no MD: no Vascular Ulcers: yes Claudication: no Gangrene: no Doppler Waveforms: Right: Multiphasic Left: Multiphasic Right Brachial Pressure: 171 Left Brachial Pressure: 174 Ankle-Brachial Indices: Right: 1.04 Left: 1.15 (Vessel hardening > 1.4; Normal 0.9 - 1.4, Moderate 0.7 - 0.9, Severe 0.5-0.7) Toe Brachial Indices: Right: 0.71 Left: 0.72 IMPRESSION: Ankle-brachial indices within normal limits bilaterally.
--- NOTE | 2023-12-25 16:43 | US ---
EXAMINATION TYPE: US venous doppler duplex LE RT DATE OF EXAM: 12/25/2023 2:17 PM COMPARISON: 01/22/2020 CLINICAL INDICATION: Male, 78 years old with history of L97.912 NON-PRESSURE CHRONIC ULCER OF UNSPEC PART; History of DVT right leg, patient currently on blood thinner. non-pressure chronic ulcer right lower leg SIDE PERFORMED: right TECHNIQUE: The lower extremity deep venous system is examined utilizing real time linear array sonog yslvia with graded compression, doppler sonography and color-flow sonography. VESSELS IMAGED: Common Femoral Vein Deep Femoral Vein Greater Saphenous Vein * Femoral Vein Popliteal Vein Small Saphenous Vein * Proximal Calf Veins (* superficial vessels) Right Leg: Chronic DVT right popliteal vein, thready flow with partial compression IMPRESSION: Chronic deep vein thrombosis within the right popliteal vein.
== END | disposition home or self-care (01) ==
LOC: RADUSWWP 13:36
PROVIDERS: ATTEND Internal Medicine Infectious Disease
DX: I82.431 Acute embolism and thrombosis of right popliteal vein (principal); I82.531 Chronic embolism and thrombosis of right popliteal vein; L97.912 Non-pressure chronic ulcer of unspecified part of right lower leg with fat layer exposed
CPT/HCPCS: 93922

== ENCOUNTER → 2024-03-31 | Outpatient (CLI) | payer MEDICARE, BC ==
[2024-03-31 14:16] LABS: INR 1.3 (<1.2); Partial Thromboplastin Time 29.7 sec (22.0-30.0); Prothrombin Time 13.3 sec (10.0-12.5)
[2024-03-31 18:16] LABS: HCT 50.1 % (39.6-50.0); HGB 16.2 g/dL (13.0-17.0); MCH 30.9 pg (27.0-32.0); MCHC 32.3 g/dL (32.0-37.0); MCV 95.6 FL (80.0-97.0); Mean Platelet Volume 10.3 FL (9.5-12.2); NRBC Per 100 WBC 0 X 10*3/uL (0.00-0.01); Platelet Count 238 X 10*3/uL (140-440); RBC 5.24 X 10*6/uL (4.40-5.60); RDW 13.4 % (11.5-14.5)
[2024-03-31 19:01] LABS: ALT 18 U/L (10-49); AST 26 U/L (14-35); Albumin 4.1 g/dL (3.8-4.9); Albumin/Globulin Ratio 1.64 Ratio (1.60-3.17); Alkaline Phosphatase 90 U/L (41-126); BUN/Creat Ratio 14.28 Ratio (12.00-20.00); Blood Urea Nitrogen 25.7 mg/dL (9.0-27.0); Calcium 9.1 mg/dL (8.7-10.3); Carbon Dioxide 23.6 mmol/L (21.6-31.8); Chloride 107 mmol/L (96-109); Globulin 2.5 g/dL (1.6-3.3); Glucose 100 mg/dL (70-110); Potassium 4.5 mmol/L (3.5-5.5); Sodium 143 mmol/L (135-145); Total Bilirubin 0.5 mg/dL (0.3-1.2); Total Protein 6.6 g/dL (6.2-8.2)
== END | disposition home or self-care (01) ==
LOC: LABPAT 13:00
PROVIDERS: ATTEND Orthopaedic Surgery
DX: Z01.812 Encounter for preprocedural laboratory examination (principal); Z22.322 Carrier or suspected carrier of Methicillin resistant Staphylococcus aureus; M16.11 Unilateral primary osteoarthritis, right hip
CPT/HCPCS: 36415; 80053; 85027; 85610; 85730; 86850; 86900; 86901; 87070; 93005

== ENCOUNTER 2024-06-30 05:37 | Day surgery (SDC) | payer MEDICARE, BC ==
[~2024-06-30 05:37] MED LIST changes: -ACETAMINOPHEN TAB 500 MG TAB PO ONE; +ACETAMINOPHEN TAB 500 MG TAB PO PRN; -DEXAMETHASONE SOD PHOSPHATE 10 MG/ML 1 ML VIAL IV ONE; -LACTATED RINGERS 1,000 ML IV SCH; -LIDOCAINE 1% 20 ML VIAL (10MG/ML) FOR IV START INTRADERMA PRN; -MELOXICAM 7.5 MG TAB PO ONE; -MORPHINE SULFATE 2 MG/ML SYRINGE IV PRN; -ONDANSETRON 4 MG/2 ML VIAL IVP ONE; -ONDANSETRON 4 MG/2 ML VIAL IVP PRN; -ROPIVACAINE 246.25 MG, EPINEPHrine 0.5 MG, KETOROLAC 30 MG, cloNIDine HCL/PF 80 MCG, WA... MISCELLANE ONE; -TRANEXAMIC ACID 1,000 MG in SODIUM CHLORIDE 0.9% 100 ML IVPB ONE
[2024-06-30] MEDS ORDERED: LIDOCAINE 1% (10MG/ML) FOR IV START INTRADERMA PRN (06:09)
[2024-06-30] MEDS ORDERED: HYDROmorphone 0.5 MG/0.5 ML SYRINGE IVP PRN (06:09)
[2024-06-30] MEDS ORDERED: fentaNYL (PF) 50 MCG/ML 2 ML AMP IVP PRN (06:09)
[2024-06-30] MEDS: IV FLUID CONTINUATION 1,000 ML IV ONE ×2 (06:23→10:27)
[2024-06-30] MEDS: LACTATED RINGERS 1,000 ML IV SCH (06:56)
[2024-06-30] MEDS: DEXAMETHASONE SOD PHOSPHATE 4 MG/ML 1 ML VIAL IV ONE (06:56)
[2024-06-30] MEDS: HEPARIN SODIUM,PORCINE 5,000 UNIT/ML 1 ML VIAL SQ PRN (06:56)
[2024-06-30] MEDS: ONDANSETRON 4 MG/2 ML VIAL IVP ONE (06:56)
[2024-06-30] MEDS: MIDAZOLAM 2 MG/2 ML VIAL IV PRN (07:29)
[2024-06-30] MEDS ORDERED: ROPIVACAINE 5 MG/ML 30 ML VIAL ONE (08:11)
[2024-06-30] MEDS ORDERED: fentaNYL (PF) 50 MCG/ML 2 ML AMP ONE (08:11)
[2024-06-30] MEDS ORDERED: DEXAMETHASONE SOD PHOSPHATE 4 MG/ML 1 ML VIAL ONE (08:11)
[2024-06-30] MEDS ORDERED: PROPOFOL 10 MG/ML 20 ML VIAL IV ONE (08:11)
[2024-06-30] MEDS ORDERED: KETAMINE HCL IN 0.9 % NACL 50 MG/5 ML SYRINGE ONE (08:11)
[2024-06-30] MEDS ORDERED: HYDROmorphone (PF) 1 MG/ML ONE (08:11)
[2024-06-30] MEDS ORDERED: MIDAZOLAM 2 MG/2 ML VIAL ONE (08:11)
[2024-06-30] MEDS ORDERED: GLYCOPYRROLATE 0.2 MG/ML 2 ML VIAL ONE (08:11)
[2024-06-30] MEDS: BUPIVACAINE (PF) 0.25% 30 ML VIAL SQ ONE ×2 (08:40)
[2024-06-30] MEDS: LACTATED RINGERS 1,000 ML IV ONE (09:34)
[2024-06-30] MEDS ORDERED: traMADol 50 MG TAB PO STA (09:42)
[2024-06-30] MEDS: hydrALAZINE HCL 20 MG/ML 1 ML VIAL IVP STA (09:46)
--- NOTE | 2024-06-30 09:47 | P.OP ---
Date of Procedure: 06/30/24 Procedure(s) Performed: PREOPERATIVE DIAGNOSIS: Right inguinal hernia POSTOPERATIVE DIAGNOSIS: Same PROCEDURE: Open repair right inguinal hernia with mesh SURGEON: Dr. Mcknight ANESTHESIA: Local and sedation EBL: 10 cc OPERATIVE PROCEDURE DETAILS: Patient was placed in the operating table in the supine position and sedated per anesthesia. Surgical site infiltrated with Marcaine solution. An oblique incision was made in the right groin. Dissection down through the subcutaneous tissues took place using electrocautery. The external oblique fascia was incised using a scalpel. This opening was lengthened using the Metzenbaum scissors. The spermatic cord was encircled with a Clark drain. The spermatic cord structures were identified and preserved. Careful dissection revealed an indirect hernia sac. Hernia sac was opened and there were no bowel contents present. This was carefully dissected back to the internal inguinal ring where it was ligated using 3 separate 0 silk stick tie sutures. A 3" x 6" Prolene mesh was cut to fit on the exposed fascia. This was sutured to the pubic tubercle the folding edge of the inguinal ligament and the conjoined tendon using interrupted 0 Vicryl sutures. A slit was created in the mesh and the mesh was wrapped around the spermatic cord and sutured back to itself. The external oblique was then reapproximated using a running 2-0 Vicryl suture. The subcutaneous tissues were reapproximated using a 3-0 Vicryl sutures. The skin was closed using 4-0 Monocryl sutures. Skin glue and sterile dressings were then applied. TYPE OF MESH USED: Flat Prolene mesh LOCATION OF MESH: [place] FIXATION: 0 Vicryl PREOPERATIVE DISCUSSION ON SMOKING CESSASTION: Yes PREOPERATIVE DISCUSSION ON MORBID OBESITY: Yes PREOPERATIVE DISCUSSION ON APPROPRIATE USE OF NARCOTIC USE: Yes PREOPERATIVE EDUCATION: Multi Modal, Smoking Cessation and Weight Loss with BMI over 35. DISPOSITION: Stable to recovery room
[2024-06-30 09:50] VITALS: TEMP 96.8
[2024-06-30 11:39] VITALS: RESP 14
[2024-06-30 12:10] VITALS: BP 126/71; PULSE 87
--- NOTE | 2024-06-30 14:00 | P.ANPRN ---
Procedure Note - Anesthesia - Nerve Block Performed Right Transversus Abdominis Single Time Out Performed: Yes Date of Procedure: 06/30/24 Procedure Start Time: : Procedure Stop Time: :34 Location of Patient: PreOp Indication: Acute Post-Operative Pain, Requested by Surgeon Sedation Type: Sedate with meaningful contact maintained Preparation: Sterile Prep Position: Supine Needle Types: Pajunk Needle Gauge: 21 Ultrasound used to visualize needle placement: Yes Ultrasound used to observe medication spread: Yes Blood Aspirated: No Pain Paresthesia on Injection Noted: No Events: Uneventful and Well Tolerated (Ropivacaine 0.5% 20 cc plus dexamethasone 4 mg given on the right side)
[2024-06-30] MEDS ORDERED: ACETAMINOPHEN TAB 325 MG TAB PO SCH (15:00)
[2024-06-30] MEDS ORDERED: IBUPROFEN 600 MG TAB PO SCH (18:00)
== END 2024-06-30 12:59 | disposition home or self-care (01) ==
LOC: OR 05:37
PROVIDERS: ATTEND Surgery
DX: K40.90 Unilateral inguinal hernia, without obstruction or gangrene, not specified as recurrent (principal); G89.18 Other acute postprocedural pain; J44.9 Chronic obstructive pulmonary disease, unspecified; Z79.01 Long term (current) use of anticoagulants; Z79.51 Long term (current) use of inhaled steroids; Z86.718 Personal history of other venous thrombosis and embolism; Z98.890 Other specified postprocedural states
CPT/HCPCS: 64486; 88302; 49505; C1781; J2250; J0360; J1644; J1100; J0690; J2405; J3010; J1171; J2795; J2704; J0665; J1596

== ENCOUNTER → 2024-09-23 | Outpatient (CLI) | payer MEDICARE, BC ==
[2024-09-23 12:22] LABS: Partial Thromboplastin Time 24.8 sec (22.0-30.0); Prothrombin Time 11.2 sec (10.0-12.5)
[2024-09-23 17:09] LABS: HCT 49.1 % (39.6-50.0); HGB 15.8 g/dL (13.0-17.0); MCH 30.9 pg (27.0-32.0); MCHC 32.2 g/dL (32.0-37.0); MCV 95.9 FL (80.0-97.0); Mean Platelet Volume 10.4 FL (9.5-12.2); NRBC Per 100 WBC 0 X 10*3/uL (0.00-0.01); Platelet Count 226 X 10*3/uL (140-440); RBC 5.12 X 10*6/uL (4.40-5.60); RDW 13.4 % (11.5-14.5); WBC 6.94 X 10*3/uL (4.50-10.00)
[2024-09-23 18:04] LABS: ALT 16 U/L (10-49); AST 24 U/L (14-35); Albumin/Globulin Ratio 1.48 Ratio (1.60-3.17); Alkaline Phosphatase 92 U/L (41-126); BUN/Creat Ratio 17.12 Ratio (12.00-20.00); Blood Urea Nitrogen 29.1 mg/dL (9.0-27.0); Calcium 9.5 mg/dL (8.7-10.3); Carbon Dioxide 27.2 mmol/L (21.6-31.8); Chloride 107 mmol/L (96-109); Globulin 2.7 g/dL (1.6-3.3); Glucose 95 mg/dL (70-110); Potassium 4.9 mmol/L (3.5-5.5); Sodium 143 mmol/L (135-145); Total Bilirubin 0.5 mg/dL (0.3-1.2); Total Protein 6.7 g/dL (6.2-8.2)
== END | disposition home or self-care (01) ==
LOC: LABPAT 11:10
PROVIDERS: ATTEND Orthopaedic Surgery
DX: Z01.818 Encounter for other preprocedural examination (principal); M16.11 Unilateral primary osteoarthritis, right hip; I45.2 Bifascicular block; I45.10 Unspecified right bundle-branch block; I44.4 Left anterior fascicular block; R94.31 Abnormal electrocardiogram [ECG] [EKG]; Z22.322 Carrier or suspected carrier of Methicillin resistant Staphylococcus aureus
CPT/HCPCS: 80053; 85027; 85610; 85730; 86850; 86900; 86901; 87070; 93005

== ENCOUNTER 2024-09-30 07:10 | Day surgery (SDC) | payer MEDICARE, BC ==
[~2024-09-30 07:10] MED LIST changes: -ACETAMINOPHEN TAB 500 MG TAB PO PRN; +HYDROmorphone 0.5 MG/0.5 ML SYRINGE IVP PRN; +LIDOCAINE 1% (10MG/ML) FOR IV START INTRADERMA PRN; +TRANEXAMIC 1,000 MG/100ML-NACL 1,000 MG in SALINE 1 100ML.BAG IVPB PRN; +fentaNYL (PF) 50 MCG/ML 2 ML AMP IVP PRN
[2024-09-30] MEDS: IV FLUID CONTINUATION 1,000 ML IV ONE (08:04)
[2024-09-30] MEDS: VANCOMYCIN 1,250 MG in SODIUM CHLORIDE 0.9% 250 ML IVPB PRN (08:06)
[2024-09-30] MEDS: LACTATED RINGERS 1,000 ML IV SCH (08:06)
[2024-09-30] MEDS: ACETAMINOPHEN TAB 500 MG TAB PO PRN (08:18)
[2024-09-30] MEDS: ONDANSETRON 4 MG/2 ML VIAL IVP ONE (08:18)
[2024-09-30] MEDS: MELOXICAM 7.5 MG TAB PO PRN (08:18)
[2024-09-30] MEDS: DEXAMETHASONE SOD PHOSPHATE 4 MG/ML 1 ML VIAL IV ONE (08:18)
[2024-09-30] MEDS: GABAPENTIN 300 MG CAP PO PRN (08:18)
[2024-09-30] MEDS: MIDAZOLAM 2 MG/2 ML VIAL IV PRN (08:37)
[2024-09-30] MEDS ORDERED: NALOXONE 0.4 MG/ML 1 ML VIAL IV PRN (09:03)
[2024-09-30] MEDS ORDERED: MAGNESIUM HYDROXIDE 2,400 MG/30 ML CUP PO PRN (09:03)
[2024-09-30] MEDS ORDERED: ONDANSETRON 4 MG/2 ML VIAL IVP PRN (09:03)
[2024-09-30] MEDS ORDERED: HYDROcodone/APAP 5-325MG 1 EACH TAB PO PRN (09:03)
[2024-09-30] MEDS ORDERED: HYDROmorphone 0.5 MG/0.5 ML SYRINGE IVP PRN ×3 (09:03)
[2024-09-30] MEDS ORDERED: DEXAMETHASONE SOD PHOSPHATE 4 MG/ML 1 ML VIAL ONE (09:19)
[2024-09-30] MEDS ORDERED: ROPIVACAINE 5 MG/ML 30 ML VIAL ONE (09:19)
[2024-09-30] MEDS ORDERED: PROPOFOL 10 MG/ML 20 ML VIAL IV ONE (09:19)
[2024-09-30] MEDS ORDERED: PHENYLEPHRINE 10 MG/ML VIAL ONE (09:19)
[2024-09-30] MEDS ORDERED: TRANEXAMIC 1,000 MG/100ML-NACL PREMIX BAG ONE (09:19)
[2024-09-30] MEDS ORDERED: KETAMINE HCL IN 0.9 % NACL 50 MG/5 ML SYRINGE ONE (09:19)
[2024-09-30] MEDS ORDERED: GLYCOPYRROLATE 0.2 MG/ML 2 ML VIAL ONE (09:19)
[2024-09-30] MEDS: ceFAZolin 1,000 MG in SODIUM CHLORIDE 0.9% 1,000 ML IRRIGATION ONE (09:49)
[2024-09-30] MEDS: ROPIVACAINE 5 MG/ML 30 ML VIAL MISCELLANE ONE (09:49)
[2024-09-30] MEDS: LACTATED RINGERS 1,000 ML IV ONE (10:49)
--- NOTE | 2024-09-30 10:52 | P.OP ---
Date of Procedure: 09/30/24 Preoperative Diagnosis: Severe osteoarthritis, right hip Postoperative Diagnosis: Severe osteoarthritis right hip Procedure(s) Performed: Right total hip arthroplasty with a direct anterior approach Implants: [employer] Nephew Polarstem standard size 6 with a collar [employer] Nephew R3, 3 hole hemispherical acetabular shell, 52 mm [employer] Nephew Reflection 6.5 mm cancellus screws, 20 mm, 25 mm [employer] Nephew R3, XLPE 20 acetabular liner [employer] Nephew Oxinium femoral head 36 mm, -3 All components were press-fit. The articulation is Oxinium on polyethylene. Anesthesia: spinal Surgeon: Bayron De Souza Manager Park #1: Merly Jensen Estimated Blood Loss (ml): 300 Pathology: none sent Condition: stable Disposition: PACU Indications for Procedure: After failure of conservative treatment we discussed the surgical and nonsurgical treatment options at length. Patient wishes to proceed with a total hip arthroplasty with a direct anterior approach. Complications specific to this procedure were discussed at length, including but not limited to infection, leg length discrepancy, dislocation, nerve injury, and fracture. Covid-19 was also discussed at length with the patient, and they are aware of the current policies and procedures. The patient was given the option of delaying surgery, but they elect to proceed knowing these risks. Patient is aware of all these complications and informed consent was obtained Operative Findings: The operative findings are consistent with severe osteoarthritis of the right hip Description of Procedure: The patient was seen and evaluated in the preoperative area and the consent was reviewed. The operative site was marked with a skin marker. The patient verified the procedure and operative site. A PIOTR block was placed by anesthesia in the preoperative area. The patient was then brought to the operating room and given preoperative antibiotics intravenously. 1 g of Tranexamic acid was also given intravenously. A spinal anesthetic was administered by the anesthesia department. The patient was then placed on the Hansford table with the bony prominences well-padded. The hip area was then prepped with a ChloraPrep solution and draped in the usual sterile fashion. A universal timeout was then performed, which confirmed the patient's name, surgical site, ALLERGIES, and procedure being performed on the consent. Next the incision site was located at 1 cm distal and 4 cm lateral to the anterior superior iliac spine. The skin and subcutaneous tissues were sharply incised. Incision was carefully dissected down to the fascia overlying the tensor fascia rasta muscle. This fascia was then incised in line with the muscle fibers. Care was taken to stay laterally in order to avoid injuring the lateral femoral cutaneous nerve. Next, using blunt finger dissection, the tensor fascia rasta muscle was dissected off its investing fascia. The muscle was then carefully retracted laterally with a cobra retractor over the lateral neck of the femur. Next, the circumflex vessels were identified and cauterized using the Aquamantis device. The anterior hip capsule was then exposed. The capsule was then opened and an inverted T fashion. The retractors were then placed intracapsularly. The retractors were maintained intracapsular throughout the procedure. The proximal femur was then visualized. Fluoroscopic x-rays were then taken in order to evaluate the preoperative leg lengths. A small amount of traction was placed on the leg. The femoral neck was then osteotomized at the appropriate level above the lesser trochanter. A small wedge of bone was then removed from the remaining femoral head. Next, using a corkscrew the femoral head was removed from the acetabulum. On gross visual inspection, the femoral head had complete loss of articular cartilage and multiple periarticular osteophytes. The femoral head was then measured. Attention was then turned to the acetabulum. The acetabulum was exposed and any remaining labrum was excised. Sequential reaming of the acetabulum was performed using fluoroscopic guidance until there was a good bed of bleeding cancellus bone. When the appropriate size was reached, a trial was then placed. The position and fit of the trial was checked with fluoroscopy. The trial was then removed. Then, using fluoroscopic guidance, the final implant was impacted at 20 of anteversion and 40 of abduction, and fully seated in the acetabulum. 2 screws were then placed in the acetabulum. Again fluoroscopy was used to check position of the screws. Next, the liner was then impacted, with a 20 elevated liner located in the anterior superior quadrant. Component locking was confirmed. Attention was then directed to the femur. With the aid of the Hansford table, the femur was externally rotated to approximately 130, extended, and adducted under the opposite leg. A side hook was then placed under the proximal femur, and the side hook elevator was used to elevate the proximal femur while releasing the capsule. Retractors were then placed. A capsular release was performed, as well as a release of the conjoined tendon, which afforded excellent visualization of the proximal femur. Next, a box osteotome was used to lateralize the proximal femur. A drawer in hand was then used to locate the femoral canal. Sequential broaching was then performed with appropriate size which afforded excellent fixation in the proximal femur. A trial was then placed with appropriate head and neck, and the hip was gently reduced with the aid of the Hansford table. Fluoroscopy was then used to check position of the components, as well as to evaluate the leg lengths and offset. The leg lengths and offset were measured as closely as possible to ensure stability of the hip. The hip was then gently dislocated and the trials were then removed. Final implants were then impacted and the hip was again reduced. Final fluoroscopic x-rays confirmed that the components were in anatomic position. The leg lengths and offset were measured and were found to coincide with the trial measurements. The hip was also taken through range of motion, and found to be stable. The hip was then copiously irrigated with antibiotic solution with pulsatile lavage. The hip was then irrigated with Irrisept solution. The soft tissues were then injected with a ropivacaine solution. A second dose of 1 g of Tranexamic acid was also given intravenously. The fascia was then closed with 2-0 strata fix suture. The subcutaneous tissue was closed with 3-0 Vicryl. The subcuticular tissue was closed with 3-0 moncryl suture. The skin was then closed with Exofin skin glue. After the glue and dried, and Optifoam silver impregnated dressing was applied. The patient was then transferred to the recovery room in stable condition. The accountant assistant MARIAA Beverly was required due to the complexity of surgery, and the need for skilled surgical instrument technician for positioning, draping, exposure, retraction, and closure of the wound.
--- NOTE | 2024-09-30 11:04 | FL ---
EXAMINATION TYPE: FL guidance operating room, XR Hip Limited RT DATE OF EXAM: 09/30/2024 CLINICAL INDICATION: Male, 79 years old with history of RT ANTERIOR HIP, TECHNIQUE: Fluoroscopy. Intraoperative limited views right hip. COMPARISON: Outside right hip x-ray October 11, 2023. FINDINGS: Fluoroscopic guidance was provided during right hip replacement procedure performed by Dr. De Souza. A total of 19.8 seconds of fluoroscopic time was utilized during the procedure and 3 spot intraoperative images are acquired. Images acquired initially show advanced degenerative change of right hip with eventual metallic hardw are from total right hip arthroplasty identified after surgery. TOTAL DAP = 0.9108 Gycm2. IMPRESSION: As Above. [facility], , 09/30/2024 11:02 AM
--- NOTE | 2024-09-30 11:52 | XR ---
EXAMINATION TYPE: XR Hip Limited RT DATE OF EXAM: 09/30/2024 CLINICAL INDICATION: Male, 79 years old with history of Status post hip surgery, assess surgical alig nment, hip pain and osteoarthritis. pain TECHNIQUE: Single AP portable view of right hip is obtained immediately postoperatively. COMPARISON: Pelvic x-ray September 28, 2022 FINDINGS: Metallic hardware from right hip arthroplasty is now seen and appears satisfactory in align ment and position. There is evidence of recent surgery with subcutaneous gas noted laterally. IMPRESSION: Metallic hardware from right hip arthroplasty is satisfactory in position. [facility], , 09/30/2024 11:50 AM
[2024-09-30] MEDS: hydrALAZINE HCL 20 MG/ML 1 ML VIAL IVP STA (15:08)
--- NOTE | 2024-09-30 15:30 | P.ANPRN ---
Procedure Note - Anesthesia - Nerve Block Performed Right Tommy Single Time Out Performed: Yes Date of Procedure: 09/30/24 Procedure Start Time: 08:34 Procedure Stop Time: 08:39 Location of Patient: PreOp Indication: Acute Post-Operative Pain, Requested by Surgeon Sedation Type: Sedate with meaningful contact maintained Preparation: Sterile Prep Position: Supine Needle Types: Pajunk Needle Gauge: 21 Ultrasound used to visualize needle placement: Yes Ultrasound used to observe medication spread: Yes Blood Aspirated: No Pain Paresthesia on Injection Noted: No Resistance on Injection: Normal Image Stored and Saved: Yes Events: Uneventful and Well Tolerated (Ropivacaine 0.5% 20 cc plus dexamethasone 4 mg)
[2024-09-30 16:33] VITALS: RESP 18
[2024-09-30] MEDS: HYDROcodone/APAP 5-325MG 1 EACH TAB PO PRN (17:44)
[2024-09-30] MEDS: SODIUM CHLORIDE 0.9% 1,000 ML IV SCH (17:45)
[2024-09-30] MEDS: SENNOSIDES-DOCUSATE SODIUM 1 EACH TAB PO SCH (21:04)
[2024-10-01 07:38] VITALS: BP 129/64; PULSE 82; TEMP 98.5
[2024-10-01 08:27] LABS: Basophils # (A) 0.03 X 10*3/uL (0.00-0.10); Basophils % (A) 0.2 %; Eosinophils # (A) 0.03 X 10*3/uL (0.04-0.35); Eosinophils % (A) 0.2 %; HCT 44.7 % (39.6-50.0); HGB 14.7 g/dL (13.0-17.0); Lymphocytes # (A) 1.04 X 10*3/uL (0.90-5.00); Lymphocytes % (A) 7.9 %; MCH 31.3 pg (27.0-32.0); MCHC 32.9 g/dL (32.0-37.0); MCV 95.1 FL (80.0-97.0); Mean Platelet Volume 10.6 FL (9.5-12.2); Monocytes # (A) 1.12 X 10*3/uL (0.20-1.00); Monocytes % (A) 8.5 %; NRBC Per 100 WBC 0 X 10*3/uL (0.00-0.01); Neutrophils # (A) 10.84 X 10*3/uL (1.80-7.70); Neutrophils % (A) 82.7 %; Platelet Count 223 X 10*3/uL (140-440); RDW 13.2 % (11.5-14.5); WBC 13.13 X 10*3/uL (4.50-10.00)
[2024-10-01] MEDS: RIVAROXABAN 15 MG TAB PO SCH (09:22)
--- NOTE | 2024-10-01 10:26 | P.DS ---
Providers Expected date of discharge: 10/01/24 Attending physician: Bayron De Souza Consults: 09/30/24 16:04 Consult Physician Routine Consulting Provider: Brandy Eng Consult Reason/Comments: medical management Do you want consulting provider notified?: Yes Primary care physician: Yisle Marquez - Discharge Diagnosis(es) (1) Osteoarthritis of right hip Current Visit: Yes Status: Acute (2) S/P total right hip arthroplasty Current Visit: Yes Status: Acute Hospital Course: This is an 79-year-old male with known history of degenerative arthritis of the right hip. The patient presents for evaluation. After discussion and consideration patient elects to proceed with total hip arthroplasty with direct anterior approach. The patient is seen preoperatively by primary care physician and cleared for surgery. Patient is admitted to [facility] on 09/30/2024 for total hip arthroplasty with direct anterior approach. The procedure is performed without complication or sequelae. The patient is doing well postoperatively. Labs and vital signs are stable on day of discharge. On day of discharge patient's hip incision is healing well. There is minimal erythema. There is no drainage noted at this time. There is minimal soft tissue swelling to the hip and thigh. Patient has full foot and ankle motion without difficulty or pain. Neurovascular status to the lower extremity is intact. Patient is discharged to home in good condition. Please see med rec for accurate list of home medications. Patient Condition at Discharge: Good Plan - Discharge Summary Discharge Rx Participant: No New Discharge Prescriptions: New HYDROcodone/APAP 5-325MG [Sutherland 5] 1 - 2 each PO Q6HR PRN #32 tab PRN Reason: Pain Sennosides-Docusate Sodium [Senokot-S] 1 tab PO BID PRN #60 tablet PRN Reason: Constipation No Action Rivaroxaban [Xarelto] 15 mg PO DAILY Budesonide-Formot 160-4.5 Mcg [Symbicort 160-4.5 Mcg Inhaler] 2 puff INHALATION RT-BID Discharge Medication List Rivaroxaban [Xarelto] 15 mg PO DAILY 10/27/15 [History] Budesonide-Formot 160-4.5 Mcg [Symbicort 160-4.5 Mcg Inhaler] 2 puff INHALATION RT-BID 02/03/19 [History] HYDROcodone/APAP 5-325MG [Sutherland 5] 1 - 2 each PO Q6HR PRN #32 tab 10/01/24 [Rx] Sennosides-Docusate Sodium [Senokot-S] 1 tab PO BID PRN #60 tablet 10/01/24 [Rx] Follow up Appointment(s)/Referral(s): Bayron De Souza DO [Doctor of Osteopathic Medicine] - 2 Weeks Patient Instructions/Handouts: Joint Replacement Surgery (DC) Activity/Diet/Wound Care/Special Instructions: Weightbearing as tolerated with walker. Leave dressing intact. Dressing may be removed by home care nurse or by patient in 7 days. Then change dressing twice daily until follow up. May shower with initial dressing intact and after removal. If dressing become saturated, please remove. Please resume Xarelto. Recommend use of compression stockings daily until follow up to help prevent swelling and blood clots. May remove at night before sleeping. [facility] with [facility] 2 weeks and call with any questions or concerns, . Discharge Disposition: HOME WITH HOME HEALTH SERVICES
[2024-10-01] MEDS ORDERED: RIVAROXABAN 15 MG TAB PO SCH (17:30)
--- NOTE | 2024-10-02 01:49 | CONS ---
CONSULTATION REASON FOR CONSULTATION: Advice regarding asthma and other medical issues, requested by Orthopedics. HISTORY OF PRESENT ILLNESS: This 79-year-old gentleman with a past medical history of asthma, COPD, being followed by Dr. Marquez as outpatient, underwent a right total hip joint arthroplasty. There is no history of any fever, rigors, or chills. No headache, loss of consciousness, or seizures. The patient has history of DVT previously. PAST MEDICAL HISTORY: Reviewed include asthma, COPD, and history of DVT. Rest of the history and rest of the chart is also reviewed. HOME MEDICATIONS: Reviewed include Symbicort. Rest of the medication and doses reviewed. ALLERGIES: None. FAMILY HISTORY: History of myocardial infarction in the family. SOCIAL HISTORY: Previous history of smoking. REVIEW OF SYSTEMS: A 14-point review of systems is negative except as mentioned earlier. PHYSICAL EXAMINATION: VITAL SIGNS: Pulse 82, blood pressure 120/62, and respirations 18. HEENT: Conjunctivae normal. NECK: No JVD. CARDIOVASCULAR: S1, S2. RESPIRATIONS: Breath sounds diminished at the bases. ABDOMEN: Soft. LEGS: Status post right hip arthroplasty. LABORATORY DATA: WBC 13.13. ASSESSMENT: 1. Status post right total hip joint arthroplasty. 2. History of asthma. 3. Chronic obstructive pulmonary disease. 4. History of deep vein thrombosis. 5. Hypertension. 6. History of degenerative joint disease. 7. History of pulmonary embolism. RECOMMENDATIONS AND DISCUSSION: This 79-year-old gentleman, who presented with multiple complex medical issues. I would recommend to continue the current medications, continue symptomatic treatment. Otherwise, resume the home medications. I would recommend to continue with Xarelto and closely follow with primary physician. Pain management workup. Rest of the recommendations per Orthopedic Surgery. Further recommendations to follow. MMODL / IJN: [id number] /
== END 2024-10-01 15:57 | disposition home health service (06) ==
LOC: OR 07:10 → 4SSUR 11:02 → OR 10-01 15:57
PROVIDERS: ATTEND Orthopaedic Surgery
DX: M16.11 Unilateral primary osteoarthritis, right hip (principal); G89.18 Other acute postprocedural pain; I10 Essential (primary) hypertension; J44.89 Other specified chronic obstructive pulmonary disease; Z79.01 Long term (current) use of anticoagulants; Z79.51 Long term (current) use of inhaled steroids; Z86.711 Personal history of pulmonary embolism; Z86.718 Personal history of other venous thrombosis and embolism; Z87.891 Personal history of nicotine dependence; Z79.899 Other long term (current) drug therapy
CPT/HCPCS: 97161; 97535; 97166; 64473; 85025; 73501; 27130; C1776; J2250; J3370; J0360; J1100; J0690 ×3; J2405; J2795